=== PATIENT | female | born 1950 | race Caucasian/White ===

== ENCOUNTER 2016-12-15 13:31 | Observation (INO) | payer MEDICARE, OTHER ==
[~2016-12-15 13:31] MED LIST: FLUT1SPR9 EACH NARE; LISI-363 PO; LORA-392 PO; ZITH250T PO
[2016-12-15 13:38] VITALS: BP 148/82; PULSE 104; RESP 17; TEMP 98.2; O2SAT 98
--- NOTE | 2016-12-15 13:56 | PD ---
Physical Exam Date Seen by Provider: Dec 15, 2016 Time Seen by Provider: 13:55 Narrative 66 year old female presents to the emergency department for evaluation of abdominal pain, nausea, vomiting since 3am. Patient has history of gastroparesis. Patient is awaiting bed placement. Data Data Last Documented VS Vital Signs Date Time Temp Pulse Resp B/P Pulse Ox O2 Delivery O2 Flow Rate FiO2 12/15/16 13:38 98.2 104 17 148/82 98 MDM Supervised Visit with KENNETH: Divine Mclain Dec 15, 2016 13:56
[2016-12-15] MEDS ORDERED: LISI30TA4 PO (17:22)
[2016-12-15] MEDS ORDERED: AMLO5TAB2 PO (17:22)
[2016-12-15] MEDS ORDERED: ZOFR4TAB3 SL (17:23)
[2016-12-15 17:26] VITALS: BP 190/104; PULSE 114; RESP 20; O2SAT 98
[2016-12-15] MEDS ORDERED: SODIUM CHLOR 0.9% 1000 ML INJ 1,000 ML IV SCH (17:27)
[2016-12-15] MEDS ORDERED: ONDANSETRON HCL 4 MG/2 ML VIAL IVP ONE (17:30)
[2016-12-15] MEDS ORDERED: SODIUM CHLORIDE 0.9% FLUSH 10 ML FLUSH IVF PRN (17:30)
[2016-12-15] MEDS ORDERED: FAMOTIDINE 20 MG/2 ML VIAL IV PUSH ONE (17:30)
--- NOTE | 2016-12-15 17:42 | PD ---
HPI Chief Complaint: GI Complaint Time Seen by Provider: 17:37 Travel History International Travel<30 days: No Contact w/Intl Traveler<30days: No Traveled to known affect area: No History of Present Illness HPI Patient comes in complaining of abdominal pain primarily in the left lower quadrant that began around 3 AM this morning. Patient reports a history of gastroparesis and states this feels similar. Patient reports bright red blood per rectum began earlier today as well as some hematemesis. Patient reports that she had a GI bleed last February, but does not follow with a GI doctor secondary to the co-pay being high. Patient states she is taking Zofran for this, but denies doing anything else. Denies anything making it better or worse. PFSH Past Medical History Autoimmune Disease: No Anxiety: Yes Depression: No Cancer: No Cardiovascular Problems: Yes (HTN) High Cholesterol: No COPD: Yes Diminished Hearing: No Endocrine: No Gastrointestinal Disorders: Yes (GASTROPAReSIS) Genitourinary: Yes (Hydronephrosis right kidney, frequent urination, nocturia) Hepatitis: Yes (c) Hypertension: Yes Immune Disorder: No Musculoskeletal: No Neurologic: No Psychiatric: No Reproductive: No : 3 Para: 3 Past Surgical History Body Medical Devices: hernia mesh right femoral hernia repair. Other Surgery: Yes (hernia repair) Social History Alcohol Use: No Tobacco Use: Yes (1/2 ppd) Substance Use: No Allergies-Medications (Allergen,Severity, Reaction): Coded Allergies: Protonix (Verified Allergy, Intermediate, LEGS HURT, 12/15/16) Reglan (Verified Allergy, Intermediate, 12/15/16) BLURRED VISION Penicillin (Verified Allergy, Unknown, 12/15/16) Phenergan (Verified Adverse Reaction, Intermediate, 12/15/16) RESTLESS LEGS Reported Meds & Prescriptions Reported Meds & Active Scripts Active Reported Zofran Odt (Ondansetron Odt) 4 Mg Tab 4 Mg SL Q6HR PRN Amlodipine (Amlodipine Besylate) 5 Mg Tab 5 Mg PO DAILY Lisinopril 30 Mg Tab 30 Mg PO DAILY Review of Systems Except as stated in HPI: all other systems reviewed are Neg Physical Exam Narrative GENERAL: Well-developed, well nourished, in no acute distress, and non-ill appearing. SKIN: Focused skin assessment warm and dry. HEAD: Atraumatic. Normocephalic. EYES: Pupils equal and round. EOMI. No scleral icterus. No injection or drainage. ENT: No nasal bleeding or discharge. Mucous membranes pink and moist. NECK: Trachea midline. Supple. No nuclear rigidity. CARDIOVASCULAR: Regular rate and rhythm. No murmur appreciated. RESPIRATORY: No accessory muscle use. No respiratory distress. Clear to auscultation. Breath sounds equal bilaterally. GASTROINTESTINAL: Abdomen soft, tenderness throughout, nondistended. Hepatic and splenic margins not palpable. Hypoactive bowel sounds 4. No pulsatile mass. MUSCULOSKELETAL: No obvious deformities. No clubbing. No cyanosis. No edema. Full range of motion. NEUROLOGICAL: Awake and alert. No obvious cranial nerve deficits. Motor grossly within normal limits. Normal speech. PSYCHIATRIC: Appropriate mood and affect; insight and judgment normal. Data Data Last Documented VS Vital Signs Date Time Temp Pulse Resp B/P Pulse Ox O2 Delivery O2 Flow Rate FiO2 12/15/16 17:26 114 20 190/104 98 Room Air 12/15/16 13:38 98.2 Orders Urinalysis - C+S If Indicated (12/15/16 14:06) Complete Blood Count With Diff (12/15/16 17:27) Comprehensive Metabolic Panel (12/15/16 17:27) Lipase (12/15/16 17:27) Prothrombin Time / Inr (Pt) (12/15/16 17:27) Act Partial Throm Time (Ptt) (12/15/16 17:27) Type And Screen (12/15/16 17:27) Ecg Monitoring (12/15/16 17:27) Iv Access Insert/Monitor (12/15/16 17:27) Oximetry (12/15/16 17:27) Ondansetron Inj (Zofran Inj) (12/15/16 17:30) Sodium Chlor 0.9% 1000 Ml Inj (Ns 1000 M (12/15/16 17:27) Sodium Chloride 0.9% Flush (Ns Flush) (12/15/16 17:30) Famotidine Inj (Pepcid Inj) (12/15/16 17:30) Ct Abd/Pel W Iv Contrast(Rout) (12/15/16 ) Morphine Inj (Morphine Inj) (12/15/16 18:15) Admit Order (Ed Use Only) (12/15/16 18:37) Labs Laboratory Tests Test 12/15/16 12/15/16 17:45 18:10 White Blood Count 7.0 TH/MM3 Red Blood Count 4.74 MIL/MM3 Hemoglobin 16.0 GM/DL Hematocrit 45.6 % Mean Corpuscular Volume 96.2 FL Mean Corpuscular Hemoglobin 33.8 PG Mean Corpuscular Hemoglobin 35.1 % Concent Red Cell Distribution Width 16.0 % Platelet Count 234 TH/MM3 Mean Platelet Volume 8.3 FL Neutrophils (%) (Auto) 88.3 % Lymphocytes (%) (Auto) 7.0 % Monocytes (%) (Auto) 4.1 % Eosinophils (%) (Auto) 0.0 % Basophils (%) (Auto) 0.6 % Neutrophils # (Auto) 6.1 TH/MM3 Lymphocytes # (Auto) 0.5 TH/MM3 Monocytes # (Auto) 0.3 TH/MM3 Eosinophils # (Auto) 0.0 TH/MM3 Basophils # (Auto) 0.0 TH/MM3 CBC Comment DIFF FINAL Differential Comment Prothrombin Time 10.4 SEC Prothromb Time International 0.9 RATIO Ratio Activated Partial 24.4 SEC Thromboplast Time Sodium Level 133 MEQ/L Potassium Level 3.5 MEQ/L Chloride Level 92 MEQ/L Carbon Dioxide Level 26.1 MEQ/L Anion Gap 15 MEQ/L Blood Urea Nitrogen 7 MG/DL Creatinine 0.81 MG/DL Estimat Glomerular Filtration 71 ML/MIN Rate Random Glucose 150 MG/DL Calcium Level 9.2 MG/DL Total Bilirubin 0.8 MG/DL Aspartate Amino Transf 124 U/L (AST/SGOT) Alanine Aminotransferase 86 U/L (ALT/SGPT) Alkaline Phosphatase 87 U/L Total Protein 10.6 GM/DL Albumin 4.9 GM/DL Lipase 92 U/L Blood Type A POSITIVE Antibody Screen POSITIVE Urine Color LIGHT-YELLOW Urine Turbidity CLEAR Urine pH 6.0 Urine Specific [place] 1.007 Urine Protein 100 mg/dL Urine Glucose (UA) NEG mg/dL Urine Ketones 10 mg/dL Urine Occult Blood TRACE Urine Nitrite NEG Urine Bilirubin NEG Urine Urobilinogen LESS THAN 2.0 MG/DL Urine Leukocyte Esterase NEG Urine RBC 2 /hpf Urine Squamous Epithelial <1 /hpf Cells Microscopic Urinalysis Comment CULT NOT INDICATED MDM Medical Decision Making Medical Screen Exam Complete: Yes Emergency Medical Condition: Yes Differential Diagnosis Abdominal pain, small bowel judgment, diverticulitis, colitis, GI bleed, other Narrative Course Patient seen and examined. Initial laboratories reveal x-ray was obtained and reviewed. Patient is hydrated with IV fluid, Zofran for nausea, and morphine for pain. Discussed all findings and plan care of patient, who was agreeable for admission. All questions were answered. Discussed patient with Dr. Davalos, who is in agreement with plan of care and disposition. [facility] Point of Care Internal Pos. & Neg. Controls: Passed Fecal Specimen Occult Blood: Positive Comment Verbal consent was obtained. Digital rectal exam was performed. Stool specimen applied and test interpreted between 1 and 3 minutes of application and the result was positive. Internal Controls: Both positive and negative controls were validated. buckle strap puncher Keren was present during this exam. Small external hemorrhoid noted at approximately 6:00 on exam. Physician Communication Physician Communication [id number] Lobato, who is agreeable to admit the patient. Diagnosis Primary Impression: Abdominal pain Qualified Code: R10.9 - Abdominal pain, unspecified location Additional Impression: Bright red blood per rectum Admitting Information Admitting Physician Requests: Observation Condition: Stable Pramod Vann Dec 15, 2016 17:42
[2016-12-15 18:12] LABS: AUTOMATED NEUTROPHIL # 6.1 TH/MM3 (1.8-7.7); BASOPHIL % 0.6 % (0.0-2.0); HEMATOCRIT 45.6 % (35.0-46.0); HEMO FLAGS DIFF FINAL; LYMPHOCYTE # 0.5 TH/MM3 (1.0-4.8); MEAN CELL VOLUME 96.2 FL (80.0-100.0); MEAN CORPUSCULAR HEMOGLOBIN 33.8 PG (27.0-34.0); MEAN CORPUSCULAR HGB CONC 35.1 % (32.0-36.0); MONO % 4.1 % (0.0-8.0); NEUT % 88.3 % (16.0-70.0); PLATELET COUNT 234 TH/MM3 (150-450); RED BLOOD COUNT 4.74 MIL/MM3 (4.00-5.30)
[2016-12-15] MEDS ORDERED: MORPHINE SULFATE 4 MG/ML INJ IV PUSH ONE (18:15)
[2016-12-15 18:31] LABS: APTT (PATIENT) 24.4 SEC (24.3-30.1); INTERNATIONAL NORMALIZED RATIO 0.9 RATIO; PROTHROMBIN TIME - PATIENT 10.4 SEC (9.8-11.6)
[2016-12-15 18:33] LABS: ANION GAP 15 MEQ/L (5-15); AST (GOT) 124 U/L (15-37); BICARBONATE 26.1 MEQ/L (21.0-32.0); BLOOD UREA NITROGEN 7 MG/DL (7-18); CHLORIDE 92 MEQ/L (98-107); GLOMERULAR FILTRATION RATE 71 ML/MIN (>89); POTASSIUM 3.5 MEQ/L (3.5-5.1); SODIUM (NA) 133 MEQ/L (136-145)
[2016-12-15 18:36] LABS: ALKALINE PHOSPHATASE 87 U/L (45-117); ALT (GPT) 86 U/L (10-53); TOTAL BILIRUBIN ADULT 0.8 MG/DL (0.2-1.0)
[2016-12-15 18:52] LABS: BLOOD, URINE TRACE (NEG); COMMENT (UR) CULT NOT INDICATED; CULTURE IF INDICATED CULT NOT INDICATED; GLUCOSE,URINE NEG (NEG); KETONE, URINE 10 mg/dL (NEG); NITRITE,URINE NEG (NEG); SQUAMOUS EPITHELIAL CELL URINE <1 /hpf (0-5); URINE COLOR LIGHT-YELLOW (YELLW/STRAW)
[2016-12-15] MEDS ORDERED: ENALAPRILAT 1.25 MG/ML VIAL IV PUSH PRN (19:00)
--- NOTE | 2016-12-15 19:06 | HHI.HP ---
HPI Service [facility] Primary Care Physician Marin Rios MD Admission Diagnosis abdominal pain, bright blood per rectum, Chief Complaint: abdomen pain, rectal bleed Travel History International Travel<30 Days: No Contact w/Intl Traveler <30 Da: No Traveled to Known Affected Are: No History of Present Illness Pt is 66 yo with hep c who presents with vomiting and what she calls her normal abdomen pain like her previous gastroparesis. She did note some blood in her stool but downplays this and is requesting dc to home after ivf and zofran. says she drinks 2 beers per day and does occasionally tremor without it. No fever or chills. Review of Systems Other vomiting chronic abdomen pain. blood in stool Past Family Social History Past Medical History hep c genotype 1a, HCV RNA 81,380 IU/mL on 09/23/15, treatment naive egd 2015. gastritis/esophagitis/duodenitis gastric diverticulum htn gastroparesis. Chronic right hydronephrosis Hiatal hernia repair Reported Medications Reported Meds & Active Scripts Active Reported Zofran Odt (Ondansetron Odt) 4 Mg Tab 4 Mg SL Q6HR PRN Amlodipine (Amlodipine Besylate) 5 Mg Tab 5 Mg PO DAILY Lisinopril 30 Mg Tab 30 Mg PO DAILY Allergies: Coded Allergies: Protonix (Verified Allergy, Intermediate, LEGS HURT, 12/15/16) Reglan (Verified Allergy, Intermediate, 12/15/16) BLURRED VISION Penicillin (Verified Allergy, Unknown, 12/15/16) Phenergan (Verified Adverse Reaction, Intermediate, 12/15/16) RESTLESS LEGS Family History nc Social History 2beers per day 1/2 ppd tob. tobacco use for at least 45 yrs. Physical Exam Vital Signs lying in bed no labored breathing heart reg lung cta abd protuberant. bs/mild luq tenderness ext no edema Vital Signs Date Time Temp Pulse Resp B/P Pulse Ox O2 Delivery O2 Flow Rate FiO2 12/15/16 18:51 17 12/15/16 17:26 114 20 190/104 98 Room Air 12/15/16 13:38 98.2 104 17 148/82 98 Laboratory Laboratory Tests Test 12/15/16 12/15/16 17:45 18:10 White Blood Count 7.0 Red Blood Count 4.74 Hemoglobin 16.0 Hematocrit 45.6 Mean Corpuscular Volume 96.2 Mean Corpuscular Hemoglobin 33.8 Mean Corpuscular Hemoglobin 35.1 Concent Red Cell Distribution Width 16.0 Platelet Count 234 Mean Platelet Volume 8.3 Neutrophils (%) (Auto) 88.3 Lymphocytes (%) (Auto) 7.0 Monocytes (%) (Auto) 4.1 Eosinophils (%) (Auto) 0.0 Basophils (%) (Auto) 0.6 Neutrophils # (Auto) 6.1 Lymphocytes # (Auto) 0.5 Monocytes # (Auto) 0.3 Eosinophils # (Auto) 0.0 Basophils # (Auto) 0.0 CBC Comment DIFF FINAL Differential Comment Prothrombin Time 10.4 Prothromb Time International 0.9 Ratio Activated Partial 24.4 Thromboplast Time Sodium Level 133 Potassium Level 3.5 Chloride Level 92 Carbon Dioxide Level 26.1 Anion Gap 15 Blood Urea Nitrogen 7 Creatinine 0.81 Estimat Glomerular Filtration 71 Rate Random Glucose 150 Calcium Level 9.2 Total Bilirubin 0.8 Aspartate Amino Transf 124 (AST/SGOT) Alanine Aminotransferase 86 (ALT/SGPT) Alkaline Phosphatase 87 Total Protein 10.6 Albumin 4.9 Lipase 92 Blood Type A POSITIVE Urine Color LIGHT-YELLOW Urine Turbidity CLEAR Urine pH 6.0 Urine Specific [place] 1.007 Urine Protein 100 Urine Glucose (UA) NEG Urine Ketones 10 Urine Occult Blood TRACE Urine Nitrite NEG Urine Bilirubin NEG Urine Urobilinogen LESS THAN 2.0 Urine Leukocyte Esterase NEG Urine RBC 2 Urine Squamous Epithelial <1 Cells Microscopic Urinalysis Comment CULT NOT INDICATED Result Diagram: 12/15/16174412/15/161744 Assessment and Plan Problem List: (1) GI bleed Status: Acute Plan: Pt has hep c. c/o some abdomen pains in upper quadrants. has had vomiting today but attributes this to her gastroparesis. She did have hem positive stool with nml hgb. CT a/p was pending. ivf ordered. liquid diet tonight. has ppi allergy will cont [id number] prn zofran Etoh w/d precautions. monitor h/h dvt prophylaxis she is refusing any reglan or EES for her GP check lactic acid. and recheck total prot. Pt was threatening to leave against advice. discussed with ED and they will have her go AMA if she chooses. (2) Vomiting Status: Acute Plan: see above (3) Abdominal pain Status: Acute Plan: see above (4) Hepatitis C Status: Chronic (5) Hypertension Status: Chronic Plan: cont home meds Problem Qualifiers (1) Abdominal pain: Qualified Code: R10.9 - Abdominal pain, unspecified location Av House MD Dec 15, 2016 19:06
[2016-12-15] MEDS ORDERED: LORazepam 2 MG/ML VIAL IV PUSH PRN (19:15)
[2016-12-15] MEDS ORDERED: IOHEXOL 350 MG/ML 10 ML VIAL (for RAD DIAG) IV ONE (19:38)
--- NOTE | 2016-12-15 19:52 | RADRPT ---
EXAM DATE/TIME: 12/15/2016 19:16 [facility] COMPARISON: CT ABDOMEN & PELVIS W CONTRAST, February 24, 2016, 23:02. CT ABDOMEN & PELVIS W/O CONTRAST, February 27, 6:07. INDICATIONS : Abdominal pain with weakness, nausea, and vomiting. IV CONTRAST: 100 cc Omnipaque 350 (iohexol) IV ORAL CONTRAST: No oral contrast ingested. RADIATION DOSE: 6.64 CTDIvol (mGy) MEDICAL HISTORY : Gastrointestinal bleed. Hepatitis C. Hypertension.Hydronephrosis, right. SURGICAL HISTORY : None. ENCOUNTER: Initial ACUITY: 1 day PAIN SCALE: 8/10 LOCATION: abdomen TECHNIQUE: Volumetric scanning of the abdomen and pelvis was performed. Using automated exposure control and ad justment of the mA and/or kV according to patient size, radiation dose was kept as low as reasonably achievable to obtain optimal diagnostic quality images. FINDINGS: LOWER LUNGS: The visualized lower lungs are clear. LIVER: Pronounced diffuse steatosis. No focal mass or biliary ductal dilatation. SPLEEN: Normal size without lesion. PANCREAS: Within normal limits. KIDNEYS: Stable moderate right hydronephrosis. Tiny bilateral cysts. ADRENAL GLANDS: Within normal limits. VASCULAR: There is atherosclerotic calcification involving abdominal aorta and branch vessels. Suspect there ma y be high grade stenosis at the origin of the superior mesenteric artery. This could be better evalua derek with CTA. No evidence of aneurysm. BOWEL/MESENTERY: Gastric fundal diverticulum is again noted. Distal colonic diverticulosis. No definite abnormal dilat ation, wall thickening or focal inflammatory changes. ABDOMINAL WALL: Within normal limits. RETROPERITONEUM: There is no lymphadenopathy. BLADDER: Moderately dilated REPRODUCTIVE: Within normal limits. INGUINAL: There is no lymphadenopathy or hernia. MUSCULOSKELETAL: Within normal limits for patient age. 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 This could be further evaluated with CTA abdomen if clinically indicated. Stable moderate right hydronephrosis with increased dilation of the urinary bladder compared to prior Zain Chavez MD on December 15, 2016 at 19:40 Board Certified Radiologist. This report was verified electronically.
--- NOTE | 2016-12-15 20:19 | RADRPT ---
EXAM DATE/TIME: 12/15/2016 19:41 [facility] COMPARISON: CT ABDOMEN & PELVIS W/O CONTRAST, February 28, 2016, 6:07. CT ABDOMEN & PELVIS W CONTRAST, December 15, 19:16. INDICATIONS : Vomiting, abdominal pain MEDICAL HISTORY : Gastroparesis. SURGICAL HISTORY : None. ENCOUNTER: Initial ACUITY: 1 week PAIN SCORE: 8/10 LOCATION: Bilateral abdomen FINDINGS: Supine view of the abdomen was performed. Contrast is identified within the urinary system. There is moderate distention of the right collecting system and renal pelvis. There is a duplicated collectin g system seen on the left side. No dilatation is seen on the left side. The ureters appear patent. Th e bladder appears moderately distended. The abdominal bowel gas pattern is normal. No abnormal lucius s, calcifications, or organomegaly is seen. The osseous structures are unremarkable. CONCLUSION: Moderate dilatation of the right renal collecting system and renal pelvis. The bowel gas pattern is u nremarkable. Zain Cedeño MD on December 15, 2016 at 20:15 Board Certified Radiologist. This report was verified electronically.
[2016-12-15] MEDS: SODIUM CHLOR 0.9% 1000 ML INJ 1,000 ML IV SCH (21:18)
[2016-12-15] MEDS: ONDANSETRON HCL 4 MG/2 ML VIAL IV PUSH PRN (21:22)
[2016-12-15] MEDS: MORPHINE SULFATE 4 MG/ML INJ IV PUSH PRN (21:29)
[2016-12-15 22:00] VITALS: BP 160/88; PULSE 100; RESP 20; O2SAT 95
[2016-12-15 22:39] VITALS: BP 185/101; PULSE 121; RESP 20; O2SAT 95
[2016-12-15 22:56] VITALS: BP 166/94; PULSE 107; RESP 18; O2SAT 94
[2016-12-15 23:30] VITALS: BP 167/92; PULSE 106; RESP 20; O2SAT 94
[2016-12-16 01:10] VITALS: BP 169/92; PULSE 99; RESP 20; TEMP 98.4; O2SAT 96
[2016-12-16] MEDS: ONDANSETRON HCL 4 MG/2 ML VIAL IV PUSH PRN ×3 (01:28→17:18)
[2016-12-16] MEDS: MORPHINE SULFATE 4 MG/ML INJ IV PUSH PRN ×5 (01:29→22:31)
[2016-12-16 04:46] VITALS: BP 132/73; PULSE 91; RESP 20; TEMP 99; O2SAT 94
[2016-12-16] MEDS: SODIUM CHLOR 0.9% 1000 ML INJ 1,000 ML IV SCH ×2 (05:03→18:38)
[2016-12-16 06:22] LABS: INDIRECT BILIRUBIN 0.6 MG/DL (0.0-0.8); TOTAL BILIRUBIN ADULT 0.8 MG/DL (0.2-1.0)
[2016-12-16 06:48] LABS: AUTOMATED NEUTROPHIL # 3.3 TH/MM3 (1.8-7.7); BASOPHIL % 0.6 % (0.0-2.0); HEMATOCRIT 42.2 % (35.0-46.0); HEMO FLAGS DIFF FINAL; LYMPH % 16.1 % (9.0-44.0); LYMPHOCYTE # 0.8 TH/MM3 (1.0-4.8); MEAN CELL VOLUME 96.4 FL (80.0-100.0); MEAN CORPUSCULAR HEMOGLOBIN 33.5 PG (27.0-34.0); MEAN CORPUSCULAR HGB CONC 34.7 % (32.0-36.0); MONO % 20.3 % (0.0-8.0); PLATELET COUNT 204 TH/MM3 (150-450); RED BLOOD COUNT 4.38 MIL/MM3 (4.00-5.30); WHITE BLOOD COUNT 5.2 TH/MM3 (4.0-11.0)
[2016-12-16 08:19] VITALS: BP 148/76; PULSE 82; RESP 18; TEMP 98.6; O2SAT 95
[2016-12-16] MEDS: LISINOPRIL 10 MG TAB PO SCH (08:34)
[2016-12-16] MEDS: FAMOTIDINE 20 MG TAB PO SCH ×2 (08:34→22:20)
[2016-12-16] MEDS: amLODIPine BESYLATE 5 MG TAB PO SCH (08:34)
--- NOTE | 2016-12-16 10:26 | HHI.PR ---
Subjective Remarks pt was concerned with rectal bleeding yesterday. abdomen pain and vomiting seem better...she believes it is gastroparesis Objective Vitals heart reg lung cta abd nabs. no rebound. mild epigastic tenderness. Vital Signs Date Time Temp Pulse Resp B/P Pulse Ox O2 Delivery O2 Flow Rate FiO2 12/16/16 08:19 98.6 82 18 148/76 95 12/16/16 04:46 99.0 91 20 132/73 94 12/16/16 01:10 98.4 99 20 169/92 96 12/15/16 23:30 106 20 167/92 94 Room Air 12/15/16 22:56 107 18 166/94 94 Room Air 12/15/16 22:39 121 20 185/101 95 Room Air 12/15/16 22:00 100 20 160/88 95 Room Air 12/15/16 18:51 17 12/15/16 17:26 114 20 190/104 98 Room Air 12/15/16 13:38 98.2 104 17 148/82 98 Result Diagram: 12/16/16 0526 12/15/16 1745 A/P Problem List: (1) GI bleed Status: Acute Plan: Pt has hep c. c/o some abdomen pains in upper quadrants. has had vomiting but attributes this to her gastroparesis. She did have hem positive stool with nml hgb. She does have hx of diverticulosis and hemorrhoids which may be the culprit. ct noted to have possible severe sma stenosis. chronic left hydronephrosis noted. dilated urine bladder noted...will get pvr and in/out cath if needed to assess volume. CT a/p noted. ivf ordered. liquid diet GI consult requested for rectal bleeding. has ppi allergy will cont [id number] prn zofran Etoh w/d precautions. monitor h/h dvt prophylaxis she is refusing any reglan or EES for her GP check lactic acid nml check bladder scan and pvr (2) Vomiting Status: Acute Plan: see above (3) Abdominal pain Status: Acute Plan: see above (4) Hepatitis C Status: Chronic (5) Hypertension Status: Chronic Plan: cont home meds Problem Qualifiers (1) Abdominal pain: Qualified Code: R10.9 - Abdominal pain, unspecified location Av House MD Dec 16, 2016 10:26
[2016-12-16 11:46] VITALS: BP 130/68; PULSE 73; RESP 18; TEMP 97.8; O2SAT 96
[2016-12-16 19:42] VITALS: BP 129/69; PULSE 77; RESP 18; TEMP 98.1; O2SAT 96
[2016-12-16 23:48] VITALS: BP 149/78; PULSE 82; RESP 20; TEMP 98; O2SAT 95
--- NOTE | 2016-12-16 23:59 | MB ---
cc: PAO DINH M.D. DATE OF CONSULTATION 12/16/16 DATE OF REFERRING PHYSICIAN Dr. House REASON FOR REFERRAL GI bleed. HISTORY OF PRESENT ILLNESS Thank you for the consultation. A pleasant 66-year-old lady who has history of nausea and vomiting. The patient stated that she has abdominal pain. She thinks it is related to gastroparesis which is known condition for her. The patient saw some blood in the stool. She thinks it is related to hemorrhoid. The patient mostly came because of the nausea and she denied any other problems. She feels better now and still some discomfort and she said that she did not have any bleeding since she was admitted. REVIEW OF SYSTEMS All 12-point negative except HPI. PAST MEDICAL HISTORY Significant for hepatitis C, genotype 1. The patient has history of gastroparesis. EGD showed esophagitis, duodenitis, gastritis. Hiatal hernia repair. Hydronephrosis in the past. MEDICATIONS Medication reviewed in the chart. FAMILY HISTORY Noncontributory. SOCIAL HISTORY Positive for tobacco and alcohol. ALLERGIES PROTONIX, REGLAN, PENICILLIN, PHENERGAN. PHYSICAL EXAMINATION GENERAL: Alert, oriented, no acute distress. VITAL SIGNS: Stable. HEENT: Pupils are round, reactive to light. NECK: Supple. CHEST: Clear to auscultation and precaution. CARDIAC: Regular rate and rhythm. ABDOMEN: Soft, nondistended, mild diffuse tenderness mostly in the upper abdomen. No hepatosplenomegaly. No masses. Positive bowel sounds. EXTREMITIES: No edema, clubbing or cyanosis. PSYCHOLOGICALLY: Appropriate. NEUROLOGICALLY: ____. No focal abnormality. LABORATORY DATA White count 5.2, hemoglobin 14.6, platelets 204. INR 0.9. AST 68 down from 124 on admission, ALT 60 down from 86. Total bilirubin 0.8. Albumin 4.0. Lipase 92. IMAGING STUDIES Abdominal CT scan showed hepatic steatosis, suspected SMA stenosis. Hydronephrosis. Moderate dilation of the right renal collection system on x-ray. ASSESSMENT/PLAN A 66-year-old lady who has multiple GI issues including GI bleed. The patient is resistant to have colonoscopy. She thinks it is hemorrhoids. She said it is small amount and is not bothering her. She does not want to have anything done for it. Gastroparesis she wanted medication IV for that and she came to the hospital because of this. The patient allergic to Reglan. I talked to her about other treatment such as Erythromycin, she does not want it at this time. Hepatitis C, never been treated. This can be done as an outpatient. We will see how she is doing. Seems the patient wants to go home which is okay if she does not want any further workup. She can follow as an outpatient in a couple of weeks this. MD ROCKY Montes/KHLOE /9:54 PM /11:50 PM
[2016-12-17 04:26] VITALS: BP 151/82; PULSE 77; RESP 20; TEMP 98.3; O2SAT 95
[2016-12-17 07:41] VITALS: BP 147/82; PULSE 18; RESP 18; TEMP 98; O2SAT 96
[2016-12-17] MEDS: SODIUM CHLOR 0.9% 1000 ML INJ 1,000 ML IV SCH (08:26)
[2016-12-17] MEDS: FAMOTIDINE 20 MG TAB PO SCH (08:26)
[2016-12-17] MEDS: LISINOPRIL 10 MG TAB PO SCH (08:27)
[2016-12-17] MEDS: amLODIPine BESYLATE 5 MG TAB PO SCH (08:27)
[2016-12-17] MEDS: MORPHINE SULFATE 4 MG/ML INJ IV PUSH PRN ×2 (08:29→11:53)
[2016-12-17] MEDS: ONDANSETRON HCL 4 MG/2 ML VIAL IV PUSH PRN (08:31)
--- NOTE | 2016-12-17 10:10 | HHI.GIFU ---
Subjective Remarks Pt resting in bed. Denies n/v, bleeding. 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 This could be further evaluated with CTA abdomen if clinically indicated. Stable moderate right hydronephrosis with increased dilation of the urinary bladder compared to prior Zain Chavez MD Abdomen X-Ray 12/15/16 0000 Signed Impressions: Service Date/Time: Thursday, December 15, 2016 19:41 - CONCLUSION: Moderate dilatation of the right renal collecting system and renal pelvis. The bowel gas pattern is unremarkable. Zain Cedeño MD Physical Exam HEENT: EOMI; normocephalic; atraumatic; no jaundice. Throat is clear. NECK: Neck is supple CHEST: Chest is clear to auscultation and percussion. CARDIAC: Regular rate and rhythm with no murmur gallop or rubs. ABDOMEN: Soft, nondistended, nontender; no hepatosplenomegaly; bowel sounds are present in all four quadrants. EXTREMITIES: No clubbing, cyanosis, or edema. SKIN: Normal; no rash; no jaundice. ADMITTING OFFICER: No focal deficits; alert and oriented times three. Assessment and Plan Plan ASSESSMENT - hx GI bleed - scant blood. pt refusing colonoscopy - gastroparesis. pt allergic to reglan, does not want erythromycin. - Hep C. treatment naive PLAN: - low residue/gastroparesis diet - if tolerate above okay to d/c from GI standpoint if she does not want further workup - can evaluate for hep C tx in office as outpatient - Follow up in office in 2 weeks This pt was seen by myself and Dr. Jenkins and this note is written on his behalf Leila Arevalo Dec 17, 2016 10:10
[2016-12-17] MEDS ORDERED: ZOFR4TAB3 SL (10:48)
--- NOTE | 2016-12-17 10:48 | HHI.PR ---
Subjective Remarks wants to go home. Objective Vitals heart reg lung cta abd s/nt ext no edema Vital Signs Date Time Temp Pulse Resp B/P Pulse Ox O2 Delivery O2 Flow Rate FiO2 12/17/16 07:41 98.0 18 18 147/82 96 12/17/16 04:26 98.3 77 20 151/82 95 12/16/16 23:48 98.0 82 20 149/78 95 12/16/16 22:53 18 12/16/16 19:42 98.1 77 18 129/69 96 12/16/16 11:46 97.8 73 18 130/68 96 Result Diagram: 12/16/16 0526 12/15/16 1745 A/P Problem List: (1) GI bleed Status: Acute Plan: Pt has hep c. c/o some abdomen pains in upper quadrants. has had vomiting but attributes this to her gastroparesis. She did have hem positive stool with nml hgb. She does have hx of diverticulosis and hemorrhoids which may be the culprit. ct noted to have possible severe sma stenosis. chronic left hydronephrosis noted. dilated urine bladder noted...pvr better CT a/p noted. discussed with pt and GI ..she wants no further treatment inpt and wants to go home now with prn zofran and pcp f/u. she should also f/u with GI. but seems resistant due to copays. (2) Vomiting Status: Acute Plan: see above (3) Abdominal pain Status: Acute Plan: see above (4) Hepatitis C Status: Chronic (5) Hypertension Status: Chronic Plan: cont home meds Problem Qualifiers (1) Abdominal pain: Qualified Code: R10.9 - Abdominal pain, unspecified location Av House MD Dec 17, 2016 10:48
--- NOTE | 2016-12-17 10:49 | HHI.DCPOC ---
Discharge Care Plan Diagnosis: (1) Vomiting (2) GI bleed (3) Hepatitis C (4) Hypertension Goals to Promote Your Health * To prevent worsening of your condition and complications * To maintain your health at the optimal level Directions to Meet Your Goals Take your medications as prescribed Follow your dietary instruction Follow activity as directed Keep your appointments as scheduled Take your immunizations and boosters as scheduled If your symptoms worsen call your PCP, if no PCP go to Urgent Care Center or Emergency Room Smoking is Dangerous to Your Health. Avoid second hand smoke Call the 24-hour hour crisis hotline for domestic abuse at [address] MD Dec 17, 2016 10:49
== END 2016-12-17 15:21 | disposition home or self-care (01) ==
LOC: NEPE 13:31 → NEDA 18:39 → NEDH 23:42 → NEPFCDU 12-16 00:46
PROVIDERS: ADMIT Hospitalist; ATTEND Hospitalist
DX: K31.84 Gastroparesis (principal); I10 Essential (primary) hypertension; K62.5 Hemorrhage of anus and rectum; K92.0 Hematemesis; B18.2 Chronic viral hepatitis C; F17.200 Nicotine dependence, unspecified, uncomplicated; F41.9 Anxiety disorder, unspecified; J44.9 Chronic obstructive pulmonary disease, unspecified; Z88.8 Allergy status to other drugs, medicaments and biological substances; Z88.0 Allergy status to penicillin
CPT/HCPCS: 74000; 74177; 80053; 80076; 81001; 83605; 83690; 85025; 85610; 85730; 86077; 86850; 86870; 86900; 86901; 86902; 86920; 86922; 96374; 96375; 99285; G0378; J2060; J2270; J2405; J7030; Q9967

== ENCOUNTER 2017-08-14 15:04 | Inpatient (IN) | payer MEDICARE, OTHER ==
[~2017-08-14] VITALS: Ht 162.6 cm; Wt 53.4 kg
[~2017-08-14 15:04] MED LIST changes: +AMLO5TAB2 PO; -FLUT1SPR9 EACH NARE; -LISI-363 PO; +LISI30TA4 PO; -LORA-392 PO; -ZITH250T PO; +ZOFR4TAB3 SL
[2017-08-14 15:05] VITALS: BP 157/81; PULSE 87; RESP 20; TEMP 99.1; O2SAT 98
[2017-08-14 16:51] LABS: AUTOMATED NEUTROPHIL # 4.5 TH/MM3 (1.8-7.7); BASOPHIL % 0.6 % (0.0-2.0); HEMATOCRIT 45.3 % (35.0-46.0); HEMO FLAGS DIFF FINAL; LYMPH % 11.3 % (9.0-44.0); LYMPHOCYTE # 0.6 TH/MM3 (1.0-4.8); MEAN CELL VOLUME 92.4 FL (80.0-100.0); MEAN CORPUSCULAR HEMOGLOBIN 31.9 PG (27.0-34.0); MEAN CORPUSCULAR HGB CONC 34.6 % (32.0-36.0); MONO % 6.4 % (0.0-8.0); NEUT % 81.7 % (16.0-70.0); PLATELET COUNT 263 TH/MM3 (150-450); RED CELL DISTRIBUTION WIDTH 18.5 % (11.6-17.2); WHITE BLOOD COUNT 5.5 TH/MM3 (4.0-11.0)
[2017-08-14 17:08] LABS: BICARBONATE 24.9 MEQ/L (21.0-32.0)
[2017-08-14] MEDS ORDERED: LORA0.5T PO (17:23)
[2017-08-14] MEDS ORDERED: ACETAMINOPHEN 1000 MG/100 ML 100 ML IV ONE (18:00)
[2017-08-14] MEDS ORDERED: ONDANSETRON HCL 4 MG/2 ML VIAL IV PUSH ONE (18:00)
[2017-08-14] MEDS ORDERED: SODIUM CHLOR 0.9% 1000 ML INJ 1,000 ML IV ONE (18:00)
[2017-08-14 19:09] VITALS: BP 158/95; PULSE 98; RESP 18; O2SAT 97
[2017-08-14] MEDS ORDERED: ONDANSETRON HCL 4 MG/2 ML VIAL IV ONE (19:30)
--- NOTE | 2017-08-14 20:04 | PD ---
HPI Chief Complaint: GI Complaint Time Seen by Provider: 17:08 Travel History International Travel<30 days: No Contact w/Intl Traveler<30days: No Traveled to known affect area: No History of Present Illness HPI 67 year-old woman, history of chronic recurrent abdominal pain, but intermittent , with several month in her feel some between where she is asymptomatic. She was gastroparesis. Symptoms started last night with stomach pain nausea and vomiting. No history of abdominal surgeries. She states if she watches her diet she normally does okay. She did eat pizza last night at [employer]. History Past Medical History Narrative Medical Hypertension Gastroparesis hepatitis C gastritis Tetanus Vaccination: < 5 Years : 3 Para: 3 Social History Alcohol Use: Yes Tobacco Use: Yes (1/2 ppd) Allergies-Medications (Allergen,Severity, Reaction): Coded Allergies: metoclopramide (Unverified Allergy, Intermediate, 08/14/17) BLURRED VISION pantoprazole (Unverified Allergy, Intermediate, LEGS HURT, 08/14/17) penicillin G (Unverified Allergy, Unknown, 08/14/17) promethazine (Unverified Adverse Reaction, Intermediate, 08/14/17) RESTLESS LEGS Reported Meds & Prescriptions Reported Meds & Active Scripts Active Reported Lorazepam 0.5 Mg Tab 0.5 Mg PO BID PRN Amlodipine (Amlodipine Besylate) 5 Mg Tab 5 Mg PO DAILY Lisinopril 30 Mg Tab 30 Mg PO DAILY Review of Systems Except as stated in HPI: all other systems reviewed are Neg Physical Exam Narrative GENERAL: 67 year-old woman, intermittently retching, SKIN: Focused skin assessment warm/dry. HEAD: Atraumatic. Normocephalic. EYES: Pupils equal and round. No scleral icterus. No injection or drainage. ENT: No nasal bleeding or discharge. Mucous membranes pink and moist. NECK: Trachea midline. No JVD. CARDIOVASCULAR: Regular rate and rhythm. No murmur appreciated. RESPIRATORY: No accessory muscle use. Clear to auscultation. Breath sounds equal bilaterally. GASTROINTESTINAL: Abdomen flat, soft, no significant tenderness. MUSCULOSKELETAL: No obvious deformities. No clubbing. No cyanosis. No edema. NEUROLOGICAL: Awake and alert. No obvious cranial nerve deficits. Motor grossly within normal limits. Normal speech. PSYCHIATRIC: Appropriate mood and affect; insight and judgment normal. Data Data Last Documented VS Vital Signs Date Time Temp Pulse Resp B/P (MAP) Pulse Ox O2 Delivery O2 Flow Rate FiO2 08/14/17 19:21 18 08/14/17 19:09 98 158/95 (116) 97 08/14/17 15:05 99.1 Room Air Orders Orders Complete Blood Count With Diff (08/14/17 15:13) Basic Metabolic Panel (Bmp) (08/14/17 15:13) Urinalysis - C+S If Indicated (08/14/17 15:13) Sodium Chlor 0.9% 1000 Ml Inj (Ns 1000 M (08/14/17 18:00) Acetaminophen 1000 Mg/100 Ml (Ofirmev 10 (08/14/17 18:00) Ondansetron Inj (Zofran Inj) (08/14/17 18:00) Ondansetron Inj (Zofran Inj) (08/14/17 19:30) Labs Laboratory Tests Test 08/14/17 15:37 White Blood Count 5.5 TH/MM3 Red Blood Count 4.90 MIL/MM3 Hemoglobin 15.7 GM/DL Hematocrit 45.3 % Mean Corpuscular Volume 92.4 FL Mean Corpuscular Hemoglobin 31.9 PG Mean Corpuscular Hemoglobin Concent 34.6 % Red Cell Distribution Width 18.5 % Platelet Count 263 TH/MM3 Mean Platelet Volume 8.0 FL Neutrophils (%) (Auto) 81.7 % Lymphocytes (%) (Auto) 11.3 % Monocytes (%) (Auto) 6.4 % Eosinophils (%) (Auto) 0.0 % Basophils (%) (Auto) 0.6 % Neutrophils # (Auto) 4.5 TH/MM3 Lymphocytes # (Auto) 0.6 TH/MM3 Monocytes # (Auto) 0.4 TH/MM3 Eosinophils # (Auto) 0.0 TH/MM3 Basophils # (Auto) 0.0 TH/MM3 CBC Comment DIFF FINAL Differential Comment Blood Urea Nitrogen 11 MG/DL Creatinine 0.69 MG/DL Random Glucose 176 MG/DL Calcium Level 9.3 MG/DL Sodium Level 122 MEQ/L Potassium Level 4.0 MEQ/L Chloride Level 88 MEQ/L Carbon Dioxide Level 24.9 MEQ/L Anion Gap 9 MEQ/L Estimat Glomerular Filtration Rate 85 ML/MIN MDM Medical Decision Making Medical Screen Exam Complete: Yes Emergency Medical Condition: Yes Interpretation(s) LABS: CBC remarkable for mild elevated hemoglobin. BMP remarkable for sodium 122. Differential Diagnosis Gastroparesis, electrolyte abnormality, dehydration, other Narrative Course Medical decision making 67 year-old woman, intractable nausea vomiting, hyponatremia, likely from gastroparesis. We'll add on liver enzymes and lipase. Patient will be admitted for further evaluation and rehydration. Diagnosis Primary Impression: Hyponatremia Additional Impression: Intractable nausea and vomiting Qualified Codes: R11.2 - Nausea with vomiting, unspecified Admitting Information Admitting Physician Requests: Admit Herrera Elmore MD Aug 14, 2017 20:04
[2017-08-14] MEDS ORDERED: LORazepam 0.5 MG TAB PO PRN (21:30)
--- NOTE | 2017-08-14 21:45 | HHI.HP ---
HPI Service [facility] Hospitalists Primary Care Physician Marin Rios MD Admission Diagnosis hyponatremia, nausea vomiting Chief Complaint: persistent nausea and vomit Travel History International Travel<30 Days: No Contact w/Intl Traveler <30 Da: No Traveled to Known Affected Are: No History of Present Illness 67 year-old woman, history of chronic recurrent abdominal pain,gastroparesis has been doing fairly well. Symptoms started last night with stomach pain nausea and vomiting. No history of abdominal surgeries. She states if she watches her diet she normally does okay. She did eat pizza last night at [employer] only one and one half piece and then started with abdominal pain In er received IV fluid tylenol and zofran and pain has continued also sodium at 122 will admit for hydration and follow up labs will give pain med and nausea medication. Review of Systems Gastrointestinal: COMPLAINS OF: Abdominal pain, Nausea, Vomiting Past Family Social History Past Medical History hypertension,anxiety,gastritis last endoscopy about 1 1/2 years ago gastroparesis Past Surgical History hernia repair rt hydronephrosis Reported Medications lorazepam .5 bid,amlodipine 5,lisinopril 30 Allergies: Coded Allergies: metoclopramide (Unverified Allergy, Intermediate, 08/14/17) BLURRED VISION pantoprazole (Unverified Allergy, Intermediate, LEGS HURT, 08/14/17) penicillin G (Unverified Allergy, Unknown, 08/14/17) promethazine (Unverified Adverse Reaction, Intermediate, 08/14/17) RESTLESS LEGS Social History drinks daily and smokes 1/2ppd Physical Exam Vital Signs Vital Signs Date Time Temp Pulse Resp B/P (MAP) Pulse Ox O2 Delivery O2 Flow Rate FiO2 08/14/17 19:21 18 08/14/17 19:09 18 08/14/17 19:09 98 18 158/95 (116) 97 08/14/17 15:05 99.1 87 20 157/81 (106) 98 Room Air Physical Exam GENERAL: This is a well-nourished, well-developed patient, in no apparent distress. SKIN: No rashes, ecchymoses or lesions. Cool and dry. HEAD: Atraumatic. Normocephalic. No temporal or scalp tenderness. EYES: Pupils equal round and reactive. Extraocular motions intact. No scleral icterus. No injection or drainage. ENT: Nose without bleeding, purulent drainage or septal hematoma. Throat without erythema, tonsillar hypertrophy or exudate. Uvula midline. Airway patent. NECK: Trachea midline. No JVD or lymphadenopathy. Supple, nontender, no meningeal signs. CARDIOVASCULAR: Regular rate and rhythm without murmurs, gallops, or rubs. RESPIRATORY: Clear to auscultation. Breath sounds equal bilaterally. No wheezes , rales, or rhonchi. GASTROINTESTINAL: Abdomen soft, moderate-tender, nondistended. No hepato- splenomegaly, or palpable masses. mild guarding. MUSCULOSKELETAL: Extremities without clubbing, cyanosis, or edema. No joint tenderness, effusion, or edema noted. No calf tenderness. Negative Homans sign bilaterally. NEUROLOGICAL: Awake and alert. Cranial nerves II through XII intact. Motor and sensory grossly within normal limits. Five out of 5 muscle strength in all muscle groups. Normal speech. Laboratory Laboratory Tests Test 08/14/17 15:37 White Blood Count 5.5 Red Blood Count 4.90 Hemoglobin 15.7 Hematocrit 45.3 Mean Corpuscular Volume 92.4 Mean Corpuscular Hemoglobin 31.9 Mean Corpuscular Hemoglobin Concent 34.6 Red Cell Distribution Width 18.5 Platelet Count 263 Mean Platelet Volume 8.0 Neutrophils (%) (Auto) 81.7 Lymphocytes (%) (Auto) 11.3 Monocytes (%) (Auto) 6.4 Eosinophils (%) (Auto) 0.0 Basophils (%) (Auto) 0.6 Neutrophils # (Auto) 4.5 Lymphocytes # (Auto) 0.6 Monocytes # (Auto) 0.4 Eosinophils # (Auto) 0.0 Basophils # (Auto) 0.0 CBC Comment DIFF FINAL Differential Comment Blood Urea Nitrogen 11 Creatinine 0.69 Random Glucose 176 Calcium Level 9.3 Sodium Level 122 Potassium Level 4.0 Chloride Level 88 Carbon Dioxide Level 24.9 Anion Gap 9 Estimat Glomerular Filtration Rate 85 Result Diagram: 08/14/17 1537 08/14/177 Caprini VTE Risk Assessment Caprini VTE Risk Assessment: Mod/High Risk (score >= 2) Caprini Risk Assessment Model Point Value = 1 Point Value = 2 Point Value = 3 Point Value = 5 Age 41-60 Minor surgery BMI > 25 kg/m2 Swollen legs Varicose veins or History of unexplained or recurrent spontaneous Oral contraceptives or hormone replacement Sepsis (< 1 month) Serious lung disease, including pneumonia (< 1 month) Abnormal pulmonary function Acute myocardial infarction Congestive heart failure (< 1 month) History of inflammatory bowel disease Medical patient at bed rest Age 61-74 Arthroscopic surgery Major open surgery (> 45 min) Laparoscopic surgery (> 45 min) Malignancy Confined to bed (> 72 hours) Immobilizing plaster cast Central venous access Age >= 75 History of VTE Family history of VTE Factor V Leiden Prothrombin [id number] Lupus anticoagulant Anticardiolipin antibodies Elevated serum homocysteine Heparin-induced thrombocytopenia Other congenital or acquired thrombophilia Stroke (< 1 month) Elective arthroplasty Hip, pelvis, or leg fracture Acute spinal cord injury (< 1 month) Prophylaxis Regimen Total Risk Factor Score Risk Level Prophylaxis Regimen 0-1 Low Early ambulation 2 Moderate Order ONE of the following: *Sequential Compression Device (SCD) *Heparin 5000 units SQ BID 3-4 Higher Order ONE of the following medications: *Heparin 5000 units SQ TID *Enoxaparin/Lovenox 40 mg SQ daily (WT < 150 kg, CrCl > 30 mL/min) *Enoxaparin/Lovenox 30 mg SQ daily (WT < 150 kg, CrCl > 10-29 mL/min) *Enoxaparin/Lovenox 30 mg SQ BID (WT < 150 kg, CrCl > 30 mL/min) AND/OR *Sequential Compression Device (SCD) 5 or more Highest Order ONE of the following medications: *Heparin 5000 units SQ TID (Preferred with Epidurals) *Enoxaparin/Lovenox 40 mg SQ daily (WT < 150 kg, CrCl > 30 mL/min) *Enoxaparin/Lovenox 30 mg SQ daily (WT < 150 kg, CrCl > 10-29 mL/min) *Enoxaparin/Lovenox 30 mg SQ BID (WT < 150 kg, CrCl > 30 mL/min) AND *Sequential Compression Device (SCD) Assessment and Plan Problem List: (1) Abdominal pain ICD Codes: R10.9 - Unspecified abdominal pain Status: Acute Plan: may be related to pizza she ate which caused her abdominal pain will hydrate overnight recheck labs will get non contrast CT abdomen (2) Intractable nausea and vomiting ICD Codes: R11.2 - Nausea with vomiting, unspecified Status: Acute Plan: will use zofran prn morphine for pain (3) Hyponatremia ICD Codes: E87.1 - Hypo-osmolality and hyponatremia Status: Acute Plan: patient states has had low sodium in past related to her nausea and vomit Assessment and Plan further plan as case develops Code Status full Discussed Condition With patient Physician Certification 2 Midnight Certification Type: Admission for Inpatient Services Order for Inpatient Services The services are ordered in accordance with Medicare regulations or non- Medicare payer requirements, as applicable. In the case of services not specified as inpatient-only, they are appropriately provided as inpatient services in accordance with the 2-midnight benchmark. Estimated LOS (days): 3 3 days is the estimated time the patient will need to remain in the hospital, assuming treatment plan goals are met and no additional complications. Post-Hospital Plan: Not yet determined Problem Qualifiers (1) Intractable nausea and vomiting: Qualified Codes: R11.2 - Nausea with vomiting, unspecified Hussein Argueta MD Aug 14, 2017 21:45
[2017-08-14] MEDS ORDERED: NALOXONE HCL 0.4 MG/ML AMP IV PUSH PRN (22:00)
[2017-08-14] MEDS ORDERED: MAGNESIUM HYDROXIDE SUSP 30 ML CUP PO PRN (22:00)
[2017-08-14] MEDS ORDERED: SENNOSIDES 8.6 MG TAB PO PRN (22:00)
[2017-08-14] MEDS ORDERED: BISACODYL 10 MG SUPP RECTAL PRN (22:00)
[2017-08-14] MEDS ORDERED: cloNIDine HCL 0.1 MG TAB PO PRN (22:00)
[2017-08-14] MEDS ORDERED: LACTULOSE SYRUP 20 GM/30 ML CUP PO PRN (22:00)
[2017-08-14 22:30] VITALS: BP 152/92; PULSE 92; RESP 18; TEMP 98.7; O2SAT 98
[2017-08-14 22:36] VITALS: BP 154/87; TEMP 98.7
[2017-08-14] MEDS: MORPHINE SULFATE 4 MG/ML INJ IV PUSH PRN (22:39)
[2017-08-14] MEDS: SODIUM CHLOR 0.9% 1000 ML INJ 1,000 ML IV SCH (22:39)
--- NOTE | 2017-08-14 22:48 | RADRPT ---
EXAM DATE/TIME: 08/14/2017 22:04 [facility] COMPARISON: CT ABDOMEN & PELVIS W CONTRAST, December 15, 2016, 19:16. CT ABDOMEN & PELVIS W/O CONTRAST, February 27 16, 6:07. INDICATIONS : Diffuse abdominal pain with nausea and vomiting. ORAL CONTRAST: No oral contrast ingested. RADIATION DOSE: 4.82 CTDIvol (mGy) MEDICAL HISTORY : Hypertension. Gastroparesis. Hepatitis C.Gastritis. Hydronephrosis, right SURGICAL HISTORY : None. ENCOUNTER: Initial ACUITY: 1 day PAIN SCALE: 7/10 LOCATION: Abdomen. TECHNIQUE: Volumetric scanning of the abdomen and pelvis was performed. Using automated exposure control and ad justment of the mA and/or kV according to patient size, radiation dose was kept as low as reasonably achievable to obtain optimal diagnostic quality images. DICOM format image data is available electro nically for review and comparison. FINDINGS: LOWER LUNGS: The visualized lower lungs are clear. LIVER: Homogeneous density without lesion. There is no dilation of the biliary tree. No calcified gallston es. SPLEEN: Normal size without lesion. PANCREAS: Within normal limits. KIDNEYS: Normal in size and shape. There is minimal pelvicalyceal system dilatation on the right which is impr lalo compared to previous examination. ADRENAL GLANDS: Within normal limits. VASCULAR: There is no aortic aneurysm. BOWEL/MESENTERY: A gastric diverticulum extending from the fundus is again noted. Uncomplicated colonic diverticulosis is noted. No acute diverticulitis is noted. No bowel obstruction or ileus is noted. ABDOMINAL WALL: Within normal limits. RETROPERITONEUM: There is no lymphadenopathy. BLADDER: Persistent distention of the urinary bladder is noted. REPRODUCTIVE: Within normal limits. INGUINAL: There is no lymphadenopathy or hernia. MUSCULOSKELETAL: Within normal limits for patient age. CONCLUSION: 1. Uncomplicated colonic diverticulosis. 2. Improved right-sided pelvicalyceal system dilatation compared to the previous examination in December of 2016. 3. Persistent distention of the urinary bladder. 4. Stable gastric fundal diverticulum. Braulio Arce MD on August 14, 2017 at 22:40 Board Certified Radiologist. This report was verified electronically.
[2017-08-14 23:49] VITALS: PULSE 94
[2017-08-15] VITALS: BP 148/88; PULSE 101; PULSE 88; RESP 16; TEMP 98.5; O2SAT 99
[2017-08-15 02:18] LABS: INDIRECT BILIRUBIN 0.3 MG/DL (0.0-0.8); TOTAL BILIRUBIN ADULT 0.4 MG/DL (0.2-1.0)
[2017-08-15] MEDS: ONDANSETRON HCL 4 MG/2 ML VIAL IVP PRN ×3 (02:45→17:15)
[2017-08-15 04:00] VITALS: BP 154/52; PULSE 91; RESP 21; TEMP 98.1; O2SAT 95
[2017-08-15] MEDS: MORPHINE SULFATE 4 MG/ML INJ IV PUSH PRN ×3 (05:06→17:15)
[2017-08-15 08:00] VITALS: BP 162/84; PULSE 91; PULSE 94; RESP 18; TEMP 98.3; O2SAT 95
[2017-08-15] MEDS: LISINOPRIL 10 MG TAB PO SCH (09:08)
[2017-08-15] MEDS: amLODIPine BESYLATE 5 MG TAB PO SCH (09:09)
[2017-08-15] MEDS: SODIUM CHLORIDE 0.9% FLUSH 10 ML FLUSH IV FLUSH SCH ×2 (09:09→20:47)
[2017-08-15] MEDS: DOCUSATE SODIUM 50 MG/SENNA 8.6 MG TAB PO SCH ×2 (09:09→20:47)
[2017-08-15] MEDS: SODIUM CHLOR 0.9% 1000 ML INJ 1,000 ML IV SCH (09:12)
[2017-08-15 09:13] LABS: BASOPHIL % 0.4 % (0.0-2.0); HEMATOCRIT 45.1 % (35.0-46.0); HEMO FLAGS DIFF FINAL; LYMPH % 16.8 % (9.0-44.0); MEAN CELL VOLUME 92.2 FL (80.0-100.0); MEAN CORPUSCULAR HEMOGLOBIN 31.8 PG (27.0-34.0); MEAN CORPUSCULAR HGB CONC 34.4 % (32.0-36.0); MONO % 16.7 % (0.0-8.0); NEUT % 66.1 % (16.0-70.0); PLATELET COUNT 241 TH/MM3 (150-450)
--- NOTE | 2017-08-15 09:33 | HHI.PR ---
Subjective Remarks Patient reports she feels much better than last night no longer having vomiting, requesting james keon to drink Objective Vitals Vital Signs Date Time Temp Pulse Resp B/P (MAP) Pulse Ox O2 Delivery O2 Flow Rate FiO2 08/15/17 08:00 98.3 94 18 162/84 (110) 95 08/15/17 04:00 98.1 91 21 154/52 (86) 95 08/15/17 04:00 91 08/15/17 00:00 101 08/15/17 00:00 98.5 88 16 148/88 (108) 99 08/15/17 00:00 Room Air 08/14/17 23:49 94 08/14/17 22:36 98.7 87 18 154/87 (109) 100 08/14/17 22:30 98.7 92 18 152/92 (112) 98 08/14/17 19:21 18 08/14/17 19:09 18 08/14/17 19:09 98 18 158/95 (116) 97 08/14/17 15:05 99.1 87 20 157/81 (106) 98 Room Air 08/15/17 08/15/17 08/16/17 15:00 23:00 07:00 Intake Total 1000 ml Balance 1000 ml Intake IV Total 1000 ml Result Diagram: 08/15/17 0735 08/14/17 1537 Other Results Laboratory Tests Test 08/14/17 15:37 08/15/17 07:35 White Blood Count 5.5 TH/MM3 6.0 TH/MM3 Red Blood Count 4.90 MIL/MM3 4.90 MIL/MM3 Hemoglobin 15.7 GM/DL 15.6 GM/DL Hematocrit 45.3 % 45.1 % Mean Corpuscular Volume 92.4 FL 92.2 FL Mean Corpuscular Hemoglobin 31.9 PG 31.8 PG Mean Corpuscular Hemoglobin Concent 34.6 % 34.4 % Red Cell Distribution Width 18.5 % 18.0 % Platelet Count 263 TH/MM3 241 TH/MM3 Mean Platelet Volume 8.0 FL 7.6 FL Neutrophils (%) (Auto) 81.7 % 66.1 % Lymphocytes (%) (Auto) 11.3 % 16.8 % Monocytes (%) (Auto) 6.4 % 16.7 % Eosinophils (%) (Auto) 0.0 % 0.0 % Basophils (%) (Auto) 0.6 % 0.4 % Neutrophils # (Auto) 4.5 TH/MM3 4.0 TH/MM3 Lymphocytes # (Auto) 0.6 TH/MM3 1.0 TH/MM3 Monocytes # (Auto) 0.4 TH/MM3 1.0 TH/MM3 Eosinophils # (Auto) 0.0 TH/MM3 0.0 TH/MM3 Basophils # (Auto) 0.0 TH/MM3 0.0 TH/MM3 CBC Comment DIFF FINAL DIFF FINAL Differential Comment Blood Urea Nitrogen 11 MG/DL Creatinine 0.69 MG/DL Random Glucose 176 MG/DL Calcium Level 9.3 MG/DL Sodium Level 122 MEQ/L Potassium Level 4.0 MEQ/L Chloride Level 88 MEQ/L Carbon Dioxide Level 24.9 MEQ/L Anion Gap 9 MEQ/L Estimat Glomerular Filtration Rate 85 ML/MIN Total Bilirubin 0.4 MG/DL Direct Bilirubin 0.1 MG/DL Indirect Bilirubin 0.3 MG/DL Aspartate Amino Transf (AST/SGOT) 54 U/L Alanine Aminotransferase (ALT/SGPT) 46 U/L Alkaline Phosphatase 82 U/L Total Protein 9.8 GM/DL Albumin 4.5 GM/DL Lipase 190 U/L Imaging Last Impressions Abdomen/Pelvis CT 08/14/17 0000 Signed Impressions: Service Date/Time: Monday, August 14, 2017 22:04 - CONCLUSION: 1. Uncomplicated colonic diverticulosis. 2. Improved right-sided pelvicalyceal system dilatation compared to the previous examination in December of 2016. 3. Persistent distention of the urinary bladder. 4. Stable gastric fundal diverticulum. Braulio Arce MD Objective Remarks GENERAL: This is a thin, well-developed patient, in no apparent distress. CARDIOVASCULAR: Regular rate and rhythm RESPIRATORY: Clear to auscultation. Breath sounds equal bilaterally. GASTROINTESTINAL: Abdomen soft, moderate-tender, nondistended. tender R upper and lower quadrant MUSCULOSKELETAL: Extremities without clubbing, cyanosis, or edema. No joint tenderness, effusion, or edema noted. No calf tenderness. Negative Homans sign bilaterally. NEUROLOGICAL: Awake and alert. No focal deficits. Motor and sensory grossly within normal limits. 4-5 out of 5 muscle strength in all muscle groups. Normal speech. Procedures none A/P Problem List: (1) Abdominal pain ICD Codes: R10.9 - Unspecified abdominal pain Status: Acute Plan: may be related to pizza she ate which caused her abdominal pain continue IV hydration await pending BMP to monitor Na level non contrast CT abdomen reviewed and reveals: Uncomplicated colonic diverticulosis. Improved right sided pelvicalyceal system dilation compared to the previous examination: 2017. Persistent diet distention of the urinary bladder. Stable gastric fundal diverticulum (2) Intractable nausea and vomiting ICD Codes: R11.2 - Nausea with vomiting, unspecified Status: Acute Plan: continue zofran prn morphine for as needed for pain start clear liquid diet (3) Hyponatremia ICD Codes: E87.1 - Hypo-osmolality and hyponatremia Status: Acute Plan: patient states has had low sodium in past related to her nausea and vomit will continue IV hydration and await pending BMP to monitor Na level Assessment and Plan Patient examined. Assessment and plan formulated with Adriane Paez PA-C. I agree with the above. Abdominal pain is resolved. Pt requesting diet. Will start on liquids. Repeat labs in AM. Problem Qualifiers (1) Intractable nausea and vomiting: Qualified Codes: R11.2 - Nausea with vomiting, unspecified Adriane Paez Aug 15, 2017 09:33 Francis Ramesh DO Aug 15, 2017 22:46
[2017-08-15 09:44] LABS: ALKALINE PHOSPHATASE 72 U/L (45-117); ALT (GPT) 37 U/L (10-53); ANION GAP 10 MEQ/L (5-15); AST (GOT) 39 U/L (15-37); BICARBONATE 23.5 MEQ/L (21.0-32.0); BLOOD UREA NITROGEN 8 MG/DL (7-18); CHLORIDE 92 MEQ/L (98-107); GLOMERULAR FILTRATION RATE 143 ML/MIN (>89); SODIUM (NA) 125 MEQ/L (136-145); TOTAL BILIRUBIN ADULT 0.5 MG/DL (0.2-1.0)
[2017-08-15 09:51] LABS: POTASSIUM 2.9 MEQ/L (3.5-5.1)
[2017-08-15] MEDS ORDERED: POTASSIUM CHLORIDE 20 MEQ CONTROLLED RELEASE TAB PO ONE (10:15)
[2017-08-15] MEDS: POTASSIUM CHLOR 20 MEQ PREMIX 100 ML IV SCH ×2 (10:24→12:27)
[2017-08-15 12:00] VITALS: BP 130/75; PULSE 82; PULSE 90; RESP 18; TEMP 98.5; O2SAT 99
[2017-08-15] MEDS: NS + KCL 20 MEQ INJ 1,000 ML IV SCH (12:29)
[2017-08-15 16:00] VITALS: BP 129/64; PULSE 74; RESP 18; TEMP 98.4; O2SAT 98
[2017-08-15 20:00] VITALS: BP 132/87; PULSE 73; PULSE 79; RESP 18; TEMP 99.1; O2SAT 96
[2017-08-16] VITALS: BP 126/62; PULSE 69; PULSE 81; RESP 16; TEMP 98.3; O2SAT 96
[2017-08-16] MEDS: ONDANSETRON HCL 4 MG/2 ML VIAL IVP PRN ×3 (00:24→13:09)
[2017-08-16] MEDS: MORPHINE SULFATE 4 MG/ML INJ IV PUSH PRN ×3 (00:25→13:09)
[2017-08-16] MEDS: SODIUM CHLORIDE 0.9% FLUSH 10 ML FLUSH IV FLUSH PRN ×2 (00:26→06:18)
[2017-08-16] MEDS: NS + KCL 20 MEQ INJ 1,000 ML IV SCH ×2 (00:28→12:32)
[2017-08-16 04:00] VITALS: BP 144/70; PULSE 65; PULSE 72; RESP 18; TEMP 98.1; O2SAT 96
[2017-08-16 07:44] LABS: BICARBONATE 23.1 MEQ/L (21.0-32.0)
[2017-08-16 08:00] VITALS: BP 113/65; PULSE 64; PULSE 68; RESP 20; TEMP 98.2; O2SAT 97
[2017-08-16] MEDS ORDERED: ZOFR4TAB PO (08:48)
[2017-08-16] MEDS: SODIUM CHLORIDE 0.9% FLUSH 10 ML FLUSH IV FLUSH SCH (09:00)
[2017-08-16] MEDS: DOCUSATE SODIUM 50 MG/SENNA 8.6 MG TAB PO SCH (09:00)
[2017-08-16] MEDS: amLODIPine BESYLATE 5 MG TAB PO SCH (09:16)
[2017-08-16] MEDS: LISINOPRIL 10 MG TAB PO SCH (09:17)
[2017-08-16 12:00] VITALS: BP 107/66; PULSE 74; RESP 18; TEMP 98.3; O2SAT 95
--- NOTE | 2017-08-16 12:12 | HHI.DCPOC ---
Discharge Care Plan Diagnosis: (1) Gastritis (2) Intractable nausea and vomiting (3) Hyponatremia Goals to Promote Your Health * To prevent worsening of your condition and complications * To maintain your health at the optimal level Directions to Meet Your Goals Take your medications as prescribed Follow your dietary instruction Follow activity as directed Keep your appointments as scheduled Take your immunizations and boosters as scheduled If your symptoms worsen call your PCP, if no PCP go to Urgent Care Center or Emergency Room Smoking is Dangerous to Your Health. Avoid second hand smoke Call the 24-hour hour crisis hotline for domestic abuse at Adriane Paez Aug 16, 2017 12:12
--- NOTE | 2017-08-16 12:16 | HHI.DS ---
Discharge Summary Admission Date Aug 14, 2017 at 21:51 Discharge Date: Aug 16, 2017 Admitting Diagnosis hyponatremia, nausea vomiting (1) Abdominal pain ICD Codes: R10.9 - Unspecified abdominal pain Status: Acute (2) Intractable nausea and vomiting ICD Codes: R11.2 - Nausea with vomiting, unspecified Status: Acute (3) Hyponatremia ICD Codes: E87.1 - Hypo-osmolality and hyponatremia Status: Acute Consultants none Procedures none Brief History 67 year-old woman, history of chronic recurrent abdominal pain,gastroparesis has been doing fairly well. Symptoms started last night with stomach pain nausea and vomiting. No history of abdominal surgeries. She states if she watches her diet she normally does okay. She did eat pizza last night at [employer] only one and one half piece and then started with abdominal pain In er received IV fluid tylenol and zofran and pain has continued also sodium at 122 will admit for hydration and follow up labs will give pain med and nausea medication. CBC/BMP: 08/15/17 0735 08/16/17 0639 Significant Findings Laboratory Tests Test 08/14/17 15:37 08/15/17 07:35 08/16/17 06:39 Hemoglobin 15.7 GM/DL (11.6-15.3) 15.6 GM/DL (11.6-15.3) Red Cell Distribution Width 18.5 % (11.6-17.2) 18.0 % (11.6-17.2) Neutrophils (%) (Auto) 81.7 % (16.0-70.0) Lymphocytes # (Auto) 0.6 TH/MM3 (1.0-4.8) Random Glucose 176 MG/DL (74-106) 109 MG/DL (74-106) Sodium Level 122 MEQ/L (136-145) 125 MEQ/L (136-145) 131 MEQ/L (136-145) Chloride Level 88 MEQ/L (98-107) 92 MEQ/L (98-107) Estimat Glomerular Filtration Rate 85 ML/MIN (>89) Aspartate Amino Transf (AST/SGOT) 54 U/L (15-37) 39 U/L (15-37) Total Protein 9.8 GM/DL (6.4-8.2) 8.7 GM/DL (6.4-8.2) Monocytes (%) (Auto) 16.7 % (0.0-8.0) Monocytes # (Auto) 1.0 TH/MM3 (0-0.9) Creatinine 0.44 MG/DL (0.50-1.00) Potassium Level 2.9 MEQ/L (3.5-5.1) Calcium Level 8.3 MG/DL (8.5-10.1) PE at Discharge GENERAL: This is a thin, well-developed patient, in no apparent distress. CARDIOVASCULAR: Regular rate and rhythm RESPIRATORY: Clear to auscultation. Breath sounds equal bilaterally. GASTROINTESTINAL: Abdomen soft, moderate-tender, nondistended. tender R upper and lower quadrant MUSCULOSKELETAL: Extremities without clubbing, cyanosis, or edema. No joint tenderness, effusion, or edema noted. No calf tenderness. Negative Homans sign bilaterally. NEUROLOGICAL: Awake and alert. No focal deficits. Motor and sensory grossly within normal limits. 4-5 out of 5 muscle strength in all muscle groups. Normal speech. Hospital Course Abdominal pain- resolved may be related to pizza she ate which caused her abdominal pain continue IV hydration await pending BMP to monitor Na level non contrast CT abdomen reviewed and reveals: Uncomplicated colonic diverticulosis. Improved right sided pelvicalyceal system dilation compared to the previous examination: 2017. Persistent diet distention of the urinary bladder. Stable gastric fundal diverticulum tolerating PO intake abdominal pain has resolved Intractable nausea and vomiting- resolved continue zofran prn morphine for as needed for pain start clear liquid diet advanced and patient tolerating regular diet Hyponatremia- improved patient states has had low sodium in past related to her nausea and vomit will continue IV hydration and await pending BMP to monitor Na level Na 08/16 131 Gastroparesis Patient has a history of gastroparesis has been unable to follow with GI regularly due to copay cost discussed with patient the importance and encouraged regular follow up Pt Condition on Discharge: Stable Discharge Disposition: Discharge Home Discharge Instructions DIET: Follow Instructions for: As Tolerated, No Restrictions Activities you can perform: Regular-No Restrictions Follow up Referrals: Gastroenterology - 2 Weeks with Osorio Proctor MD PCP Follow-up - [address] Marin Rios PCP Follow-up @ [facility] New Medications: Ondansetron (Zofran) 4 Mg Tab 4 MG PO Q6HR PRN for NAUSEA OR VOMITING, #20 TAB 0 Refills Continued Medications: Amlodipine (Amlodipine) 5 Mg Tab 5 MG PO DAILY for Blood Pressure Management, #0 TAB 0 Refills Lisinopril (Lisinopril) 30 Mg Tab 30 MG PO DAILY for Blood Pressure Management, #0 TAB 0 Refills Lorazepam (Lorazepam) 0.5 Mg Tab 0.5 MG PO BID PRN for ANXIETY, TAB 0 Refills Adriane Paez Aug 16, 2017 12:16
== END 2017-08-16 15:22 | disposition home or self-care (01) | DRG 392 ==
LOC: NEPC 15:04 → NEDA 20:17 → OBSVTOIN 21:51 → N04B 22:45
PROVIDERS: ADMIT Hospitalist; ATTEND Hospitalist
DX: R10.9 Unspecified abdominal pain (principal); E87.1 Hypo-osmolality and hyponatremia; R11.2 Nausea with vomiting, unspecified; K31.84 Gastroparesis; K57.30 Diverticulosis of large intestine without perforation or abscess without bleeding; N28.89 Other specified disorders of kidney and ureter
CPT/HCPCS: 74176; 80048; 80053; 80076; 83690; 83735; 85025; 96361; 96374; 96376; J0131; J2270; J2405; J3480; J7030

== ENCOUNTER 2017-08-25 08:26 | Observation (INO) | payer MEDICARE, OTHER ==
[2017-08-25] VITALS (8 sets, daily range): BP systolic 122–188; BP diastolic 65–96; PULSE 68–92; RESP 14–19; TEMP 97.9–98.5; O2SAT 95–100
[~2017-08-25] VITALS: Ht 162.6 cm; Wt 52.0 kg
[~2017-08-25 08:26] MED LIST changes: +LORA0.5T PO; +ZOFR4TAB PO; -ZOFR4TAB3 SL
[2017-08-25] MEDS ORDERED: SODIUM CHLOR 0.9% 1000 ML INJ 1,000 ML IV SCH (08:48)
--- NOTE | 2017-08-25 08:51 | PD ---
HPI Chief Complaint: vomiting Time Seen by Provider: 08:39 Travel History International Travel<30 days: No Contact w/Intl Traveler<30days: No Traveled to known affect area: No History of Present Illness HPI 67yo F with PMH of gastroparesis and chronic recurrent abdominal pain presents to the ED with c/o nausea, vomiting and left upper abdominal pain since yesterday. Said it feels like her usual gastroparesis and pain is like "hot sensation". Last episode of vomiting was last night. Denies any fever, chest pain, sob, dysuria, hematuria, diarrhea, focal weakness or numbness. Only surgery is femoral hernia years ago. Pt was last admitted for nausea, vomiting , hyponatremia 08/14/17-08/16/17 and had CTa/p 08/14 that showed uncomplicated colonic diverticulosis. PFSH Past Medical History Asthma: No Autoimmune Disease: No Blood Disorders: No Anxiety: Yes Depression: No Cancer: No Cardiovascular Problems: Yes (HTN) High Cholesterol: No Chemotherapy: No COPD: No Diabetes: No Diminished Hearing: No Endocrine: No Gastrointestinal Disorders: Yes (GASTROPARESIS) Hepatitis: Yes (c) Hypertension: Yes Immune Disorder: No Musculoskeletal: No Neurologic: No Psychiatric: No Reproductive: No Respiratory: No Radiation Therapy: No Sleep Apnea: No Thyroid Disease: No Tetanus Vaccination: < 5 Years Influenza Vaccination: No : 3 Para: 3 Past Surgical History Body Medical Devices: hernia mesh right femoral hernia repair. Other Surgery: Yes (HERNIA REPAIR) Social History Alcohol Use: Yes Tobacco Use: Yes (1/2 ppd) Substance Use: No Allergies-Medications (Allergen,Severity, Reaction): Coded Allergies: metoclopramide (Unverified Allergy, Intermediate, 08/25/17) BLURRED VISION pantoprazole (Unverified Allergy, Intermediate, LEGS HURT, 08/25/17) penicillin G (Unverified Allergy, Unknown, 08/25/17) promethazine (Unverified Adverse Reaction, Intermediate, 08/25/17) RESTLESS LEGS Reported Meds & Prescriptions Reported Meds & Active Scripts Active Zofran (Ondansetron HCl) 4 Mg Tab 4 Mg PO Q6HR PRN Reported Lorazepam 0.5 Mg Tab 0.5 Mg PO BID PRN Amlodipine (Amlodipine Besylate) 5 Mg Tab 5 Mg PO DAILY Lisinopril 30 Mg Tab 30 Mg PO DAILY Review of Systems Except as stated in HPI: all other systems reviewed are Neg Physical Exam Narrative GENERAL: 67yo F in mild distress. SKIN: Focused skin assessment warm/dry. HEAD: Atraumatic. Normocephalic. EYES: Pupils equal and round. No scleral icterus. No injection or drainage. CARDIOVASCULAR: Regular rate and rhythm. No murmur appreciated. RESPIRATORY: No accessory muscle use. Clear to auscultation. Breath sounds equal bilaterally. GASTROINTESTINAL: Abdomen soft, non-tender, nondistended. No rebound tenderness or guarding. MUSCULOSKELETAL: No obvious deformities. No clubbing. No cyanosis. No edema. NEUROLOGICAL: Awake and alert. No obvious cranial nerve deficits. Motor grossly within normal limits. Normal speech. PSYCHIATRIC: Appropriate mood and affect; insight and judgment normal. Data Data Last Documented VS Vital Signs Date Time Temp Pulse Resp B/P (MAP) Pulse Ox O2 Delivery O2 Flow Rate FiO2 08/25/17 14:34 70 15 123/91 (102) 97 Room Air 08/25/17 08:27 98.5 Orders Orders Complete Blood Count With Diff (08/25/17 08:48) Comprehensive Metabolic Panel (08/25/17 08:48) Lipase (08/25/17 08:48) Morphine Inj (Morphine Inj) (08/25/17 09:00) Ondansetron Inj (Zofran Inj) (08/25/17 09:00) Sodium Chlor 0.9% 1000 Ml Inj (Ns 1000 M (08/25/17 08:48) Urinalysis - C+S If Indicated (08/25/17 08:48) Morphine Inj (Morphine Inj) (08/25/17 08:55) Morphine Inj (Morphine Inj) (08/25/17 13:30) Ondansetron Inj (Zofran Inj) (08/25/17 13:30) Potassium Chloride (Kcl) (08/25/17 14:15) Potassium Chlor 20 Meq Premix (Kcl 20 Me (08/25/17 14:15) Magnesium Sulfate 1 Gm Premix (Magnesium (08/25/17 14:15) Magnesium (Mg) (08/25/17 12:30) Place In Observation (08/25/17 ) Vital Signs (Adult) AAYUSH.Q4H (08/25/17 14:27) Activity Oob With Assistance (08/25/17 14:27) Scd Bilateral/Knee High AAYUSH.QSHIFT (08/25/17 14:27) Complete Blood Count With Diff (08/26/17 06:00) Basic Metabolic Panel (Bmp) (08/26/17 06:00) Magnesium (Mg) (08/26/17 06:00) Ns + Kcl 40 Meq Inj (Ns + Kcl 40 Meq Inj (08/25/17 14:30) Acetaminophen (Tylenol) (08/25/17 14:30) Ondansetron Inj (Zofran Inj) (08/25/17 14:30) Amlodipine (Norvasc) (08/26/17 09:00) Lorazepam (Ativan) (08/25/17 14:30) Lisinopril (Prinivil) (08/26/17 09:00) Morphine Inj (Morphine Inj) (08/25/17 14:30) Admit Order (Ed Use Only) (08/25/17 14:51) Labs Laboratory Tests Test 08/25/17 08:55 08/25/17 09:50 08/25/17 12:30 White Blood Count 8.1 TH/MM3 Red Blood Count 4.82 MIL/MM3 Hemoglobin 16.0 GM/DL Hematocrit 44.3 % Mean Corpuscular Volume 91.9 FL Mean Corpuscular Hemoglobin 33.1 PG Mean Corpuscular Hemoglobin Concent 36.0 % Red Cell Distribution Width 17.2 % Platelet Count 429 TH/MM3 Mean Platelet Volume 8.6 FL Neutrophils (%) (Auto) 64.3 % Lymphocytes (%) (Auto) 18.8 % Monocytes (%) (Auto) 16.2 % Eosinophils (%) (Auto) 0.2 % Basophils (%) (Auto) 0.5 % Neutrophils # (Auto) 5.2 TH/MM3 Lymphocytes # (Auto) 1.5 TH/MM3 Monocytes # (Auto) 1.3 TH/MM3 Eosinophils # (Auto) 0.0 TH/MM3 Basophils # (Auto) 0.0 TH/MM3 CBC Comment AUTO DIFF Differential Comment AUTO DIFF CONFIRMED Urine Color LIGHT-YELLOW Urine Turbidity HAZY Urine pH 7.5 Urine Specific [place] 1.006 Urine Protein TRACE mg/dL Urine Glucose (UA) NEG mg/dL Urine Ketones NEG mg/dL Urine Occult Blood NEG Urine Nitrite NEG Urine Bilirubin NEG Urine Urobilinogen LESS THAN 2.0 MG/DL Urine Leukocyte Esterase NEG Urine RBC 2 /hpf Urine WBC 1 /hpf Urine Squamous Epithelial Cells 7 /hpf Urine Bacteria FEW /hpf Microscopic Urinalysis Comment CULT NOT INDICATED Blood Urea Nitrogen 3 MG/DL Creatinine 0.46 MG/DL Random Glucose 104 MG/DL Total Protein 8.0 GM/DL Albumin 3.5 GM/DL Calcium Level 8.8 MG/DL Magnesium Level 1.9 MG/DL Alkaline Phosphatase 69 U/L Aspartate Amino Transf (AST/SGOT) 17 U/L Alanine Aminotransferase (ALT/SGPT) 23 U/L Total Bilirubin 0.3 MG/DL Sodium Level 133 MEQ/L Potassium Level 2.6 MEQ/L Chloride Level 99 MEQ/L Carbon Dioxide Level 26.1 MEQ/L Anion Gap 8 MEQ/L Estimat Glomerular Filtration Rate 135 ML/MIN Lipase 277 U/L [facility] Medical Decision Making Medical Screen Exam Complete: Yes Emergency Medical Condition: Yes Differential Diagnosis Gastroparesis vs. pancreatitis vs. gastritis vs. peptic ulcer Narrative Course 67yo F with gastroparesis here with nausea, vomiting and left upper abdominal pain since yesterday. Pt has normal vital signs. No abdominal pain on my exam. Will do labs, give pain med, antiemetic and NS IVF. Labs reviewed, no leukocytosis. K: 2.6, replace by PO KCL and IV KCl. Magnesium is normal at 1.9. UA negative. Pt initially felt better after zofran and morphine but pain and nausea return and needed a second dose of morphine and zofran. Pt has recent CT scan and feels the same as her gastroparesis. Discussed with Dr. Gracia and accepted to his service. Diagnosis Primary Impression: Hypokalemia Additional Impression: Vomiting Qualified Codes: G43.A1 - Cyclical vomiting, intractable Admitting Information Admitting Physician Requests: Tatiana Brito DO Aug 25, 2017 08:50
[2017-08-25] MEDS ORDERED: MORPHINE SULFATE 4 MG/ML INJ ONE (08:55)
[2017-08-25] MEDS ORDERED: MORPHINE SULFATE 4 MG/ML INJ IV PUSH ONE (09:00)
[2017-08-25] MEDS ORDERED: ONDANSETRON HCL 4 MG/2 ML VIAL IVP ONE (09:00)
[2017-08-25 09:21] LABS: AUTOMATED NEUTROPHIL # 5.2 TH/MM3 (1.8-7.7); BASOPHIL % 0.5 % (0.0-2.0); EOSINOPHIL % 0.2 % (0.0-4.0); HEMATOCRIT 44.3 % (35.0-46.0); LYMPH % 18.8 % (9.0-44.0); LYMPHOCYTE # 1.5 TH/MM3 (1.0-4.8); MEAN CELL VOLUME 91.9 FL (80.0-100.0); MEAN CORPUSCULAR HEMOGLOBIN 33.1 PG (27.0-34.0); MONO % 16.2 % (0.0-8.0); NEUT % 64.3 % (16.0-70.0); PLATELET COUNT 429 TH/MM3 (150-450); RED BLOOD COUNT 4.82 MIL/MM3 (4.00-5.30); RED CELL DISTRIBUTION WIDTH 17.2 % (11.6-17.2); WHITE BLOOD COUNT 8.1 TH/MM3 (4.0-11.0)
[2017-08-25 09:40] LABS: HEMO FLAGS AUTO DIFF
[2017-08-25 10:20] LABS: SCAN/DIFF AUTO DIFF CONFIRMED
[2017-08-25 10:25] LABS: BACTERIA, URINE FEW /hpf; BLOOD, URINE NEG (NEG); COMMENT (UR) CULT NOT INDICATED; CULTURE IF INDICATED CULT NOT INDICATED; GLUCOSE,URINE NEG (NEG); KETONE, URINE NEG (NEG); NITRITE,URINE NEG (NEG); PH, URINE 7.5 (5.0-8.5); SQUAMOUS EPITHELIAL CELL URINE 7 /hpf (0-5); URINE COLOR LIGHT-YELLOW (YELLW/STRAW)
[2017-08-25] MEDS ORDERED: ONDANSETRON HCL 4 MG/2 ML VIAL IV PUSH ONE (13:30)
[2017-08-25] MEDS ORDERED: MORPHINE SULFATE 4 MG/ML INJ IM ONE (13:30)
[2017-08-25 13:53] LABS: ALKALINE PHOSPHATASE 69 U/L (45-117); ALT (GPT) 23 U/L (10-53); ANION GAP 8 MEQ/L (5-15); AST (GOT) 17 U/L (15-37); BICARBONATE 26.1 MEQ/L (21.0-32.0); BLOOD UREA NITROGEN 3 MG/DL (7-18); CHLORIDE 99 MEQ/L (98-107); GLOMERULAR FILTRATION RATE 135 ML/MIN (>89); SODIUM (NA) 133 MEQ/L (136-145); TOTAL BILIRUBIN ADULT 0.3 MG/DL (0.2-1.0)
[2017-08-25 13:54] LABS: POTASSIUM 2.6 MEQ/L (3.5-5.1)
[2017-08-25] MEDS ORDERED: POTASSIUM CHLORIDE 20 MEQ CONTROLLED RELEASE TAB PO ONE (14:15)
[2017-08-25] MEDS ORDERED: POTASSIUM CHLOR 20 MEQ PREMIX 100 ML IV ONE (14:15)
[2017-08-25] MEDS ORDERED: MAGNESIUM SULFATE 1 GM PREMIX 100 ML IV ONE (14:15)
[2017-08-25 14:18] LABS: MAGNESIUM 1.9 MG/DL (1.5-2.5)
[2017-08-25] MEDS ORDERED: LORazepam 0.5 MG TAB PO PRN (14:30)
[2017-08-25] MEDS ORDERED: ACETAMINOPHEN 325 MG TAB PO PRN (14:30)
[2017-08-25] MEDS ORDERED: MORPHINE SULFATE 4 MG/ML INJ IV PUSH PRN (14:30)
--- NOTE | 2017-08-25 14:30 | HHI.HP ---
HPI Service [facility] Hospital[facility] Primary Care Physician Marin Rios MD Admission Diagnosis Abdominal pain, nausea Chief Complaint: Abdominal pain Travel History International Travel<30 Days: No Contact w/Intl Traveler <30 Da: No Traveled to Known Affected Are: No History of Present Illness Mrs Murillo is a pleasant 67 y/o WF with gastroparesis per history, HTN, anxiety and Hepatitis C. [place] [facility] [place] with complaints of nausea, vomiting and left upper abdominal pain that began yesterday. Pt felt that this was related to her gastroparesis which was reportedly diagnosed several years ago in [place] and had also seen a junior legal secretary on the [facility]. Pt has had three admissions in the 8 months for recurrent abdominal pain, nausea and vomiting. Pt has refused medications for gastroparesis, including Reglan and EES. She also refuses to take PPIs. 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 Pt states that her PCP has discussed these findings with her in detail and that she had refused further workup with CTA. Pt reports that her symptoms occur episodically and doesn't wish to look into it further at this time. Her last episode of vomiting was last night. She denies any fever, melena, BRBPR, hematochezia, hematemesis, chest pain, SOB, dysuria, hematuria, diarrhea, focal weakness or numbness. Pts last admission was 08/14/17-08/16/17 for nausea, vomiting, hyponatremia. She had CT abd/pelvis on 08/14 that showed uncomplicated colonic diverticulosis, improved pelvicaliceal system dilation compared to previous examination and persistent distension of the urinary bladder. In the ED today her labs revealed Na+ 133, K + 2.6. Pt has potassium replacement in the IV and po ordered from the ED. Observation admission was requested for rehydration and electrolyte replacement. Review of Systems Constitutional: DENIES: Fever, Weight loss, Chills, Dizziness Eyes: DENIES: Vision loss Ears, nose, mouth, throat: DENIES: Hearing loss Respiratory: DENIES: Cough, Shortness of breath Cardiovascular: DENIES: Chest pain, Dyspnea on Exertion Gastrointestinal: COMPLAINS OF: Abdominal pain, Nausea, Vomiting, DENIES: Black stools, Bloody stools, BRB per rectum, Constipation, Diarrhea, Reflux, Difficulty Swallowing Genitourinary: DENIES: Urgency, Hematuria Musculoskeletal: DENIES: Back pain, Neck pain Integumentary: DENIES: Rash Neurologic: DENIES: Headache Psychiatric: DENIES: Confusion Past Family Social History Past Medical History Gastroparesis, dx in 2002 in [place] Gastritis/esophagitis/duodenitis/gastric diverticulum/hiatal hernia HTN Hepatitis C, genotype 1a, HCV RNA 81,380 IU/mL on 09/23/15, treatment naive Chronic right hydronephrosis Past Surgical History EGD/colonoscopy on 02/29/[address] Figueredo which noted gastritis, diverticulosis and hemorrhoids. No active bleeding. EGD on 02/25/[address] Pal --> Gastritis/esophagitis/duodenitis/gastric diverticulum/hiatal hernia Hernia repair Reported Medications Zofran (Ondansetron HCl) 4 Mg Tab 4 Mg PO Q6HR PRN Lorazepam 0.5 Mg Tab 0.5 Mg PO BID PRN Amlodipine (Amlodipine Besylate) 5 Mg Tab 5 Mg PO DAILY Lisinopril 30 Mg Tab 30 Mg PO DAILY Allergies: Coded Allergies: metoclopramide (Unverified Allergy, Intermediate, 08/25/17) BLURRED VISION pantoprazole (Unverified Allergy, Intermediate, LEGS HURT, 08/25/17) penicillin G (Unverified Allergy, Unknown, 08/25/17) promethazine (Unverified Adverse Reaction, Intermediate, 08/25/17) RESTLESS LEGS Family History Mother from lung cancer Social History (+)Tobacco use, smokes 1/2ppd Rare alcohol use Denies any illicit drug use Physical Exam Vital Signs Vital Signs Date Time Temp Pulse Resp B/P (MAP) Pulse Ox O2 Delivery O2 Flow Rate FiO2 08/25/17 12:20 72 14 126/65 (85) 98 Room Air 08/25/17 10:46 76 14 141/71 (94) 98 Room Air 08/25/17 08:40 91 19 185/93 (123) 100 Room Air 08/25/17 08:31 (126) 08/25/17 08:27 98.5 92 18 188/96 (126) 97 Physical Exam GENERAL: This is a well-nourished, well-developed patient, in no apparent distress. HEENT: Atraumatic. Normocephalic. No temporal or scalp tenderness. No scleral icterus. Airway patent. NECK: Trachea midline, supple, nontender. CARDIO: Regular. RESP: CTA bilaterally. No wheezes, rales, or rhonchi. ABD: +BS, soft, mild epigastric tenderness, nondistended. EXT: No edema NEURO: Awake and alert. Motor and sensory grossly within normal limits.Normal speech. Laboratory Laboratory Tests Test 08/25/17 08:55 08/25/17 09:50 08/25/17 12:30 White Blood Count 8.1 Red Blood Count 4.82 Hemoglobin 16.0 Hematocrit 44.3 Mean Corpuscular Volume 91.9 Mean Corpuscular Hemoglobin 33.1 Mean Corpuscular Hemoglobin Concent 36.0 Red Cell Distribution Width 17.2 Platelet Count 429 Mean Platelet Volume 8.6 Neutrophils (%) (Auto) 64.3 Lymphocytes (%) (Auto) 18.8 Monocytes (%) (Auto) 16.2 Eosinophils (%) (Auto) 0.2 Basophils (%) (Auto) 0.5 Neutrophils # (Auto) 5.2 Lymphocytes # (Auto) 1.5 Monocytes # (Auto) 1.3 Eosinophils # (Auto) 0.0 Basophils # (Auto) 0.0 CBC Comment AUTO DIFF Differential Comment AUTO DIFF CONFIRMED Urine Color LIGHT-YELLOW Urine Turbidity HAZY Urine pH 7.5 Urine Specific [place] 1.006 Urine Protein TRACE Urine Glucose (UA) NEG Urine Ketones NEG Urine Occult Blood NEG Urine Nitrite NEG Urine Bilirubin NEG Urine Urobilinogen LESS THAN 2.0 Urine Leukocyte Esterase NEG Urine RBC 2 Urine WBC 1 Urine Squamous Epithelial Cells 7 Urine Bacteria FEW Microscopic Urinalysis Comment CULT NOT INDICATED Blood Urea Nitrogen 3 Creatinine 0.46 Random Glucose 104 Total Protein 8.0 Albumin 3.5 Calcium Level 8.8 Magnesium Level 1.9 Alkaline Phosphatase 69 Aspartate Amino Transf (AST/SGOT) 17 Alanine Aminotransferase (ALT/SGPT) 23 Total Bilirubin 0.3 Sodium Level 133 Potassium Level 2.6 Chloride Level 99 Carbon Dioxide Level 26.1 Anion Gap 8 Estimat Glomerular Filtration Rate 135 Lipase 277 Result Diagram: 08/25/17 0855 08/25/17 1230 Caprini VTE Risk Assessment Caprini VTE Risk Assessment: Mod/High Risk (score >= 2) Caprini Risk Assessment Model Point Value = 1 Point Value = 2 Point Value = 3 Point Value = 5 Age 41-60 Minor surgery BMI > 25 kg/m2 Swollen legs Varicose veins or History of unexplained or recurrent spontaneous Oral contraceptives or hormone replacement Sepsis (< 1 month) Serious lung disease, including pneumonia (< 1 month) Abnormal pulmonary function Acute myocardial infarction Congestive heart failure (< 1 month) History of inflammatory bowel disease Medical patient at bed rest Age 61-74 Arthroscopic surgery Major open surgery (> 45 min) Laparoscopic surgery (> 45 min) Malignancy Confined to bed (> 72 hours) Immobilizing plaster cast Central venous access Age >= 75 History of VTE Family history of VTE Factor V Leiden Prothrombin [id number] Lupus anticoagulant Anticardiolipin antibodies Elevated serum homocysteine Heparin-induced thrombocytopenia Other congenital or acquired thrombophilia Stroke (< 1 month) Elective arthroplasty Hip, pelvis, or leg fracture Acute spinal cord injury (< 1 month) Prophylaxis Regimen Total Risk Factor Score Risk Level Prophylaxis Regimen 0-1 Low Early ambulation 2 Moderate Order ONE of the following: *Sequential Compression Device (SCD) *Heparin 5000 units SQ BID 3-4 Higher Order ONE of the following medications: *Heparin 5000 units SQ TID *Enoxaparin/Lovenox 40 mg SQ daily (WT < 150 kg, CrCl > 30 mL/min) *Enoxaparin/Lovenox 30 mg SQ daily (WT < 150 kg, CrCl > 10-29 mL/min) *Enoxaparin/Lovenox 30 mg SQ BID (WT < 150 kg, CrCl > 30 mL/min) AND/OR *Sequential Compression Device (SCD) 5 or more Highest Order ONE of the following medications: *Heparin 5000 units SQ TID (Preferred with Epidurals) *Enoxaparin/Lovenox 40 mg SQ daily (WT < 150 kg, CrCl > 30 mL/min) *Enoxaparin/Lovenox 30 mg SQ daily (WT < 150 kg, CrCl > 10-29 mL/min) *Enoxaparin/Lovenox 30 mg SQ BID (WT < 150 kg, CrCl > 30 mL/min) AND *Sequential Compression Device (SCD) Assessment and Plan Problem List: (1) Abdominal pain ICD Codes: R10.9 - Unspecified abdominal pain Status: Acute Plan: Pt is a 67 y/o WF with gastroparesis per history, HTN, anxiety and Hepatitis C. Pt felt that this was related to her gastroparesis which was reportedly diagnosed several years ago in [place] and had also seen a junior legal secretary on the [place] [facility]. Pt has had three admissions in the 8 months for recurrent abdominal pain, nausea and vomiting. Pt has refused medications for gastroparesis, including Reglan and EES. She also refuses to take PPIs. 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 Pt states that her PCP has discussed these findings with her in detail and that she had refused further workup with CTA. Pt reports that her symptoms occur episodically and doesn't wish to look into it further at this time. Pts last admission was 08/14/17-08/16/17 for nausea, vomiting, hyponatremia. She had CT abd /pelvis on 08/14 that showed uncomplicated colonic diverticulosis, improved pelvicaliceal system dilation compared to previous examination and persistent distension of the urinary bladder. Abdominal pain N/V Hyponatremia Hypokalemia - [place] [facility] [place] with complaints of nausea, vomiting and left upper abdominal pain that began yesterday. - In the ED today her labs revealed Na+ 133, K+ 2.6. Pt has potassium replacement in the IV and po ordered from the ED. - Cont. IVF with NS with KCL - Zofran PRN - Pt declines any PPI - Morphine PRN for abd pain - Again discussed with the pt further evaluation of her previous CT scan findings questioning possible SMA stenosis and explained that this could be contributing to her recurrent abd pain, nausea/vomiting but again the pt declines any evaluation with CTA. Discussed with her that should she change her mind regarding this that she can followup with her PCP who can order this test. She expressed understanding. - Diet as tolerated - Supportive care HTN - Home meds resumed - Monitor DVT Prophylaxis with SCDs (2) Hypokalemia ICD Codes: E87.6 - Hypokalemia Status: Acute Plan: - See above (3) Vomiting ICD Codes: R11.10 - Vomiting, unspecified Status: Acute Plan: - See above (4) Hypertension ICD Codes: I10 - Essential (primary) hypertension Status: Chronic Plan: - See above Problem Qualifiers (1) Vomiting: Qualified Codes: G43.A1 - Cyclical vomiting, intractable Nicki Fuller Aug 25, 2017 14:30
[2017-08-25] MEDS: NS + KCL 40 MEQ INJ 1,000 ML IV SCH (17:12)
[2017-08-25] MEDS: ONDANSETRON HCL 4 MG/2 ML VIAL IV PRN (17:57)
[2017-08-26 00:47] VITALS: BP 122/66; PULSE 68; RESP 17; TEMP 98.4; O2SAT 96
[2017-08-26 03:47] VITALS: BP 98/56; PULSE 66; RESP 17; TEMP 98.1; O2SAT 93
[2017-08-26] MEDS: NS + KCL 40 MEQ INJ 1,000 ML IV SCH (06:24)
[2017-08-26 07:42] LABS: AUTOMATED NEUTROPHIL # 2.5 TH/MM3 (1.8-7.7); BASOPHIL # 0.1 TH/MM3 (0-0.2); BASOPHIL % 1.3 % (0.0-2.0); EOSINOPHIL # 0.1 TH/MM3 (0-0.4); EOSINOPHIL % 1.1 % (0.0-4.0); HEMATOCRIT 36.2 % (35.0-46.0); HEMO FLAGS DIFF FINAL; LYMPH % 35.2 % (9.0-44.0); LYMPHOCYTE # 1.9 TH/MM3 (1.0-4.8); MEAN CELL VOLUME 94.4 FL (80.0-100.0); MEAN CORPUSCULAR HGB CONC 33.9 % (32.0-36.0); MONO % 17.4 % (0.0-8.0); PLATELET COUNT 303 TH/MM3 (150-450); RED BLOOD COUNT 3.83 MIL/MM3 (4.00-5.30); RED CELL DISTRIBUTION WIDTH 16.9 % (11.6-17.2); WHITE BLOOD COUNT 5.4 TH/MM3 (4.0-11.0)
[2017-08-26 08:06] VITALS: PULSE 65
[2017-08-26] MEDS ORDERED: traMADol HCL 50 MG TAB PO PRN (08:15)
[2017-08-26 08:17] LABS: BICARBONATE 26.3 MEQ/L (21.0-32.0); MAGNESIUM 1.9 MG/DL (1.5-2.5); POTASSIUM 4.9 MEQ/L (3.5-5.1)
[2017-08-26 08:29] VITALS: BP 126/68; PULSE 62; RESP 20; TEMP 98.1; O2SAT 95
[2017-08-26] MEDS: ONDANSETRON HCL 4 MG/2 ML VIAL IV PRN (08:36)
--- NOTE | 2017-08-26 08:42 | HHI.PR ---
Subjective Remarks Pt reports that she was able to eat dinner last night without any increased pain or nausea She has some slight nausea and abd discomfort this morning. Afebrile Objective Vitals Vital Signs Date Time Temp Pulse Resp B/P (MAP) Pulse Ox O2 Delivery O2 Flow Rate FiO2 08/26/17 08:29 98.1 62 20 126/68 (87) 95 08/26/17 03:47 98.1 66 17 98/56 (70) 93 08/26/17 00:47 98.4 68 17 122/66 (84) 96 08/25/17 19:22 97.9 71 18 127/75 (92) 95 08/25/17 15:54 98.5 68 18 122/66 (84) 98 08/25/17 15:32 72 17 125/89 (101) 97 08/25/17 14:34 70 15 123/91 (102) 97 Room Air 08/25/17 12:20 72 14 126/65 (85) 98 Room Air 08/25/17 10:46 76 14 141/71 (94) 98 Room Air 08/25/17 08:40 91 19 185/93 (123) 100 Room Air 08/26/17 08/26/17 08/27/17 15:00 23:00 07:00 Output Total 300 ml Balance -300 ml Output Urine Total 300 ml Result Diagram: 08/26/17 0702 08/26/17 0702 Other Results Laboratory Tests Test 08/25/17 08:55 08/25/17 09:50 08/25/17 12:30 08/26/17 07:02 White Blood Count 8.1 TH/MM3 5.4 TH/MM3 Red Blood Count 4.82 MIL/MM3 3.83 MIL/MM3 Hemoglobin 16.0 GM/DL 12.3 GM/DL Hematocrit 44.3 % 36.2 % Mean Corpuscular Volume 91.9 FL 94.4 FL Mean Corpuscular Hemoglobin 33.1 PG 32.0 PG Mean Corpuscular Hemoglobin Concent 36.0 % 33.9 % Red Cell Distribution Width 17.2 % 16.9 % Platelet Count 429 TH/MM3 303 TH/MM3 Mean Platelet Volume 8.6 FL 7.8 FL Neutrophils (%) (Auto) 64.3 % 45.0 % Lymphocytes (%) (Auto) 18.8 % 35.2 % Monocytes (%) (Auto) 16.2 % 17.4 % Eosinophils (%) (Auto) 0.2 % 1.1 % Basophils (%) (Auto) 0.5 % 1.3 % Neutrophils # (Auto) 5.2 TH/MM3 2.5 TH/MM3 Lymphocytes # (Auto) 1.5 TH/MM3 1.9 TH/MM3 Monocytes # (Auto) 1.3 TH/MM3 0.9 TH/MM3 Eosinophils # (Auto) 0.0 TH/MM3 0.1 TH/MM3 Basophils # (Auto) 0.0 TH/MM3 0.1 TH/MM3 CBC Comment AUTO DIFF DIFF FINAL Differential Comment AUTO DIFF CONFIRMED Urine Color LIGHT-YELLOW Urine Turbidity HAZY Urine pH 7.5 Urine Specific [place] 1.006 Urine Protein TRACE mg/dL Urine Glucose (UA) NEG mg/dL Urine Ketones NEG mg/dL Urine Occult Blood NEG Urine Nitrite NEG Urine Bilirubin NEG Urine Urobilinogen LESS THAN 2.0 MG/DL Urine Leukocyte Esterase NEG Urine RBC 2 /hpf Urine WBC 1 /hpf Urine Squamous Epithelial Cells 7 /hpf Urine Bacteria FEW /hpf Microscopic Urinalysis Comment CULT NOT INDICATED Blood Urea Nitrogen 3 MG/DL 8 MG/DL Creatinine 0.46 MG/DL 0.51 MG/DL Random Glucose 104 MG/DL 106 MG/DL Total Protein 8.0 GM/DL Albumin 3.5 GM/DL Calcium Level 8.8 MG/DL 8.5 MG/DL Magnesium Level 1.9 MG/DL 1.9 MG/DL Alkaline Phosphatase 69 U/L Aspartate Amino Transf (AST/SGOT) 17 U/L Alanine Aminotransferase (ALT/SGPT) 23 U/L Total Bilirubin 0.3 MG/DL Sodium Level 133 MEQ/L 136 MEQ/L Potassium Level 2.6 MEQ/L 4.9 MEQ/L Chloride Level 99 MEQ/L 107 MEQ/L Carbon Dioxide Level 26.1 MEQ/L 26.3 MEQ/L Anion Gap 8 MEQ/L 3 MEQ/L Estimat Glomerular Filtration Rate 135 ML/MIN 120 ML/MIN Lipase 277 U/L Objective Remarks General: NAD, AAOx3 Chest: CTA bilaterally Cardiac: Regular Abd: +BS, soft ND/NT Ext: No edema A/P Problem List: (1) Abdominal pain ICD Codes: R10.9 - Unspecified abdominal pain Status: Acute Plan: Pt is a 67 y/o WF with gastroparesis per history, HTN, anxiety and Hepatitis C. Pt felt that this was related to her gastroparesis which was reportedly diagnosed several years ago in [place] and had also seen a appliance painter and refinisher on the [facility]. Pt has had three admissions in the 8 months for recurrent abdominal pain, nausea and vomiting. Pt has refused medications for gastroparesis, including Reglan and EES. She also refuses to take PPIs. 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 Pt states that her PCP has discussed these findings with her in detail and that she had refused further workup with CTA. Pt reports that her symptoms occur episodically and doesn't wish to look into it further at this time. Pts last admission was 08/14/17-08/16/17 for nausea, vomiting, hyponatremia. She had CT abd /pelvis on 08/14 that showed uncomplicated colonic diverticulosis, improved pelvicaliceal system dilation compared to previous examination and persistent distension of the urinary bladder. Abdominal pain N/V Hyponatremia Hypokalemia - [place] [facility] [place] with complaints of nausea, vomiting and left upper abdominal pain that began yesterday. - In the ED today her labs revealed Na+ 133, K+ 2.6. Pt has potassium replacement in the IV and po ordered from the ED. - Pt was continued on IVF with NS with KCL - Zofran PRN - Pt declines any PPI - Again discussed with the pt further evaluation of her previous CT scan findings questioning possible SMA stenosis and explained that this could be contributing to her recurrent abd pain, nausea/vomiting but again the pt declines any evaluation with CTA. Discussed with her that should she change her mind regarding this that she can followup with her PCP who can order this test. She expressed understanding. - Diet as tolerated - Pt is improved clincially this morning and her electrolytes are improved. - Change pain meds to po. If tolerating breakfast pt to be discharged to home this morning. HTN - Home meds to be resumed on 08/27/17 as long as systolic BP is above 120. - Monitor at home. DVT Prophylaxis with SCDs (2) Hypokalemia ICD Codes: E87.6 - Hypokalemia Status: Acute Plan: - See above (3) Vomiting ICD Codes: R11.10 - Vomiting, unspecified Status: Acute Plan: - See above (4) Hypertension ICD Codes: I10 - Essential (primary) hypertension Status: Chronic Plan: - See above Assessment and Plan Patient examined. Assessment and plan formulated with Nicki Fuller PA-C. I agree with the above. gastroparesis question sma severe stenosis on prior ct pt refusing cta abdomen and will f/u pcp to discuss s/p ivf and electrolyte replacement dc home. Problem Qualifiers (1) Abdominal pain: Qualified Codes: R10.10 - Upper abdominal pain, unspecified (2) Vomiting: Qualified Codes: G43.A1 - Cyclical vomiting, intractable Nicki Fuller Aug 26, 2017 08:42 Av House MD Aug 26, 2017 10:57
[2017-08-26] MEDS ORDERED: ZOFR4TAB PO ×2 (08:46→10:56)
--- NOTE | 2017-08-26 08:47 | HHI.DCPOC ---
Discharge Care Plan Diagnosis: (1) Abdominal pain (2) Vomiting (3) Hypokalemia (4) Hypertension Goals to Promote Your Health - The Ultram (pain medication) can lower your blood pressure so please monitor your blood pressure closely while on this medication - Home blood pressure meds to be resumed on 08/27/17 as long as systolic blood pressure (top number) is above 120. - Monitor blood pressure at home daily and report readings to Dr. Rios - Pt has a followup appt scheduled with Dr. Rios on 08/29/17. Directions to Meet Your Goals Take your medications as prescribed Follow your dietary instruction Follow activity as directed Keep your appointments as scheduled Take your immunizations and boosters as scheduled If your symptoms worsen call your PCP, if no PCP go to Urgent Care Center or Emergency Room Smoking is Dangerous to Your Health. Avoid second hand smoke Call the 24-hour hour crisis hotline for domestic abuse at Nicki Fuller Aug 26, 2017 08:47
[2017-08-26] MEDS ORDERED: LISINOPRIL 20 MG TAB PO SCH (09:00)
[2017-08-26] MEDS ORDERED: amLODIPine BESYLATE 5 MG TAB PO SCH (09:00)
[2017-08-26] MEDS ORDERED: LISINOPRIL 10 MG TAB PO SCH (09:00)
[2017-08-26 09:50] VITALS: BP 105/57; PULSE 63
[2017-08-26] MEDS ORDERED: TRAM50 PO (10:55)
== END 2017-08-26 13:24 | disposition home or self-care (01) ==
LOC: NEPE 08:26 → NEDA 14:52 → NEPFCDU 15:40
PROVIDERS: ADMIT Hospitalist; ATTEND Hospitalist
DX: K31.84 Gastroparesis (principal); E87.6 Hypokalemia; I10 Essential (primary) hypertension; G43.A1 Cyclical vomiting, in migraine, intractable; K57.30 Diverticulosis of large intestine without perforation or abscess without bleeding; Z72.0 Tobacco use
CPT/HCPCS: 80048; 80053; 81001; 83690; 83735; 85025; 96361; 96365; 96366; 96372; 96375; 96376; 99285; G0378; J2270; J2405; J3480; J7030